=== PATIENT | male | born 1965 | race Caucasian/White ===

== ENCOUNTER → 2018-02-16 08:13 | Outpatient (CLI) | payer OTHER, SELFPAY ==
[2018-02-16 09:05] LABS: Absolute Lymphocyte Count 2.19 X10^3/ul (0.83-4.51); Basophil# 0.05 X10^3/uL; Basophil% 0.7 % (0-1); Eosinophil# 0.38 X10^3/uL; Eosinophils% 5.1 % (0-5); Hematocrit 43.1 % (40-54); Hemoglobin 15.2 g/dl (13.0-16.5); Lymphocyte # 2.19 X10^3/ul (4.0); Lymphocyte % 29.5 % (19-41); Mean Corp Hgb Conc 35.3 g/gl (32-36); Mean Corpuscular Hgb 29.2 pg (27.0-32.0); Mean Corpuscular Volume 82.7 fL (80-94); Mean Platelet Vol. 10.5 fl (6.2-12.0); Monocyte# 0.73 X10^3/uL; Monocyte% 9.8 % (0-10); Neutrophil # 4.04 X10^3/uL (2.7-7.7); Neutrophil % 54.4 % (47-70); Platelet Count 187 K/mm3 (150-450); RBC Distribution Width CV 13.2 % (11.6-14.6); RBC Distribution Width SD 39.8 fl (35.1-43.9); Red Blood Count 5.21 M/mm3 (4.6-6.2); White Blood Count 7.4 K/mm3 (4.4-11.0)
[2018-02-16 09:08] LABS: POSITIVE COUNT NO; POSITIVE DIFFERENTIAL NO; POSITIVE MORPHOLOGY NO
[2018-02-16 09:32] LABS: ALB/GLOB Ratio 1.2 RATIO (0.9-2.4); AST(SGOT) 29 U/L (15-37); Alanine Aminotransfer ALT/SGPT 59 U/L (16-61); Albumin, Serum 4.2 g/dL (3.2-5.0); Alkaline Phosphatase 65 U/L (45-117); Anion Gap 9 (5-15); BUN 15 mg/dL (7-18); BUN/Creat Ratio 11.9 RATIO (10-20); Calcium,Total 8.8 mg/dL (8.5-10.1); Chloride 105 mmol/L (98-107); Cholesterol 224 mg/dL (200); Creatinine, Serum 1.26 mg/dL (0.70-1.30); EST Glomerular Filtration Rate 64 mL/min (>60); Est Glom Filt Rate - Afr Amer 77 mL/min (>60); Globulin 3.5 g/dL (2.2-4.2); Glucose 116 mg/dL (74-106); Hemoglobin A1c 6.4 % (4.2-6.3); High Density Lipoprotein 38 mg/dL; PSA,Total - Annual Screen 3.79 ng/mL (0.00-4.00); Potassium 4.1 mmol/L (3.5-5.1); Protein, Total 7.7 g/dL (6.4-8.2); Sodium Level 140 mmol/L (136-145); Thyroid Stim Hormone (TSH) 1.49 uIU/mL (0.358-3.74); Triglycerides 344 mg/dL; Very Low Density Lipoprotein 69 mg/dL (5-40)
== END ==
PROVIDERS: Visit Provider Nurse Practitioner Family
DX: Z00.00 Encounter for general adult medical examination without abnormal findings (principal); Z13.0 Encounter for screening for diseases of the blood and blood-forming organs and certain disorders involving the immune mechanism; Z13.220 Encounter for screening for lipoid disorders; Z12.5 Encounter for screening for malignant neoplasm of prostate; Z13.1 Encounter for screening for diabetes mellitus; Z13.29 Encounter for screening for other suspected endocrine disorder
CPT/HCPCS: 36415; 80053; 80061; 83036; 84153; 84443; 85025; G0103

== ENCOUNTER 2018-06-08 07:26 | Day surgery (SDC) | payer OTHER, SELFPAY ==
[2018-06-08 07:46] VITALS: BP 123/80; PULSE 73; RESP 14; TEMP 36.2; O2SAT 98; BMI 32.3
--- NOTE | 2018-06-08 09:07 | H&P.OPEN ---
Past Medical/Surgical History - Planned Operation Planned Operative Procedure/s: COLONOSCOPY Date of Operative Procedure: 06/08/18 Permit Signed: Yes S.O.S: No Is This Patient Having a Total Joint: No - Previous Hospitalizations/Surgeries HX Hospitalizations: No HX of Surgeries: APPENDECTOMY. DEVIATED SEPTUM. HERNIA X2 Any Problems With Anesthesia: No You/Your Family Experience Fever (Hyperthermia) With Anes: No Cholinesterase deficiency: No - Cardiovascular Hx Chest Pain within Last 2 months: No Hx of Irregular Heartbeat and/or Afib: No Hx Heart Attack: No Hx Congestive Heart Failure: No Hx Rheumatic Fever: No Hx Hypertension: No Hx Internal Defibrillator: No Hx Pacemaker: No Hx Cardiac Catheterization: Yes - [facility] 2002 What facility was last heart cath performed: [facility] Date of last Heart Cath: 2002 Hx Cardiac Surgery/Stents/Etc.: No Hx Stress Test: Yes - AGE 25 HX Edema: No Hx Pain in Legs when Walking/Leg Cramps: No - Respiratory Chronic Cough: No HX of Shortness of Breath: No Hoarseness: No Hx Chronic Obstructive Pulmonary Disease (COPD): No Hx Asthma: No Hx Emphysema: No Hx Sleep Apnea: No Hx Oxygen Use at Home: No Hx Respiratory Tract Infection/Cold (presently): No Do You Snore Loudly (louder than talking or can be heard): Yes Do You Often Feel Tired/ Fatigued/ Sleepy Dring Daytime?: No Has Anyone Observed You Stop Breathing During Sleep?: No Result (for STOP score): Negative Hx Smoking: Yes Smoking Status: Former smoker - Gastrointestinal Hx Gastroesophageal Reflux: No Hx Gastrointestinal Disorders: No Hx Gastrointestinal Bleed: No Hx Ulcer: Yes - YR AGO Hx Hiatal Hernia: No Difficulty Chewing/Swallowing: No Recent Onset of Swallowing Problems: No Special diet followed at home: No Hx Unplanned Weight Loss of 20#: No HX Unplanned Weight Gain of 20#: No - Neurological Hx Seizures: No HX Syncope/Blackout Spells/Unconsciousness: No Hx CVA/Stroke: No Hx Transient Ischemic Attacks (TIA): No Hx Multiple Sclerosis: No Hx Parkinson's Disease: No Hx Head/Neck Injury: No Hx Headaches: No Hx Back Injury/Pain: No Recent Onset of Speech Difficulty: No Restless Legs: No Does patient have nerve stimulator: No - Blood Disorder Hx Leukemia: No Bleeding Tendencies: No Hx Deep Vein Thrombosis: No Hx High Cholesterol: No Blood Transmitted Disease: No Hx Hepatitis: No Hx Cirrhosis: No Hx Anemia: No Hx Blood Disorders: No - Genitourinary Hx Renal Disease: No Hx Dialysis: No - Musculoskeletal Hx Arthritis: No Hx Rheumatoid Arthritis: No Hx Gout: No Recent Onset of an Orthopedic Problem: No - Endocrine Hx Diabetes: No Thyroid Disease: No Hx Steroid Therapy: No - Psycho/Social Hx Substance Use: No Hx Alcohol Use: No Hx Anxiety: No Hx Depression: No Mental Illness: No Hx Dementia: No - Miscellaneous Hx Cancer: No Recent Exposure to Contagious Disease: No Active MRSA: No Hx of C-Diff: No Any Loose Teeth: No Allergies morphine Allergy (Verified 06/06/18 11:38) Itching - Discharge Is Pt Admitted From a Senior Care, or a [facility]pc: No Who Could Help: ED After D/C, Where Do you Plan to Go: Return Home - Physical Exam General: Alert, Oriented x3 Neck: No JVD Lungs: Normal air movement Cardiovascular: Regular rate, Regular Rhythm Abdomen: Soft, Non Tender, Non-Distended Vital Signs Temp Pulse Resp BP Pulse Ox 97.2 F L 73 14 123/80 H 98 06/08/18 07:46 06/08/18 07:46 06/08/18 07:46 06/08/18 07:46 06/08/18 07:46 Oxygen Delivery Method Room Air Weight: 231 lb 11.293 oz Body Mass Index (BMI) 32.3 Assessment/Plan All Active Problems (Last Updated 02/20/18 @ 08:19 by Teresa Land) History of pneumonia (Acute) Migraine (Acute) 53-year-old male for screening colonoscopy 1. Patient reports he had a colonoscopy as a young man but it is been over 20 years. The patient reports he has not had any blood in stool or abdominal pain. The patient has no family history of colon cancer. 2. I explained endoscopy in detail to the patient. I explained the risks including but not limited to stroke or heart attack with anesthesia, perforation of the GI tract, bleeding, infection. I explained that any of these could necessitate further emergency surgery. The patient understands and all questions were answered sufficiently. The patient wishes to proceed with procedure. Gage Schultz MD Pager: [facility] [address] [place] [address], [address] [place] [address] Office: Surgery Risks - Colonoscopy Risks Include but are not Limited To: Risks include but are not limited to: Bleeding, perforation requiring further surgery, inability to complete colonoscopy requiring barium enema.
[2018-06-08 09:08] VITALS: BP 121/58; BP 123/80; PULSE 74; RESP 16; TEMP 36.3; O2SAT 97
--- NOTE | 2018-06-08 09:08 | PCM.OPRPT ---
Problem List (1) Screening for colon cancer Status: Acute Report of Operation Date of Procedure: 06/08/18 Pre-Operative Diagnosis: Screening for colon cancer Post-Operative Diagnosis: Normal colonoscopy Surgery/Procedure Performed:: Colonoscopy Description of Procedure: The major risks and benefits associated with the procedure were explained to the patient in detail. The patient verbalized understanding and agreement with the same. The patient was brought to the endoscopy suite. After adequate sedation was achieved, the patient was placed in the left lateral decubitus position and a digital rectal exam was performed. This examination was within normal limits. A well-lubricated colonoscope was then inserted into the rectum and advanced under direct visualization to the level of the cecum. The bowel prep was good. The cecum was identified by both visual and anatomic landmarks. A photograph was taken of the end of the cecum. The scope was then fully withdrawn while examining the color, texture, anatomy and integrity of the mucosa from the cecum to the anal canal. The findings were consistent with normal colonic mucosa. Over 6 minutes were taken to examine the colonic mucosa. Upon reaching the rectum the scope was retroflexed to examine the distal rectal vault. The scope was then straightened and was completely retrieved upon exiting the anal canal and the procedure was terminated. The patient was then transferred to the recovery room in stable condition. Recommendations for follow up: 10 years
[2018-06-08 09:13] VITALS: BP 123/80; BP 129/92; PULSE 72; RESP 16; O2SAT 93
[2018-06-08 09:18] VITALS: BP 115/79; BP 123/80; PULSE 64; RESP 16; O2SAT 95
[2018-06-08 09:23] VITALS: BP 117/80; BP 123/80; PULSE 63; RESP 16; TEMP 36.3; O2SAT 97
[2018-06-08 09:36] VITALS: BP 123/80
== END 2018-06-08 09:37 | disposition home or self-care (01) ==
LOC: EN 07:27 → AC 07:28
PROVIDERS: Family Provider Internal Medicine; PCP Internal Medicine; Visit Provider Surgery
PROC: 0DJD8ZZ Inspection of Lower Intestinal Tract, Via Natural or Artificial Opening Endoscopic (ICD-10-PCS; CPT 45378; principal; 2018-06-08 08:25)
DX: Z12.11 Encounter for screening for malignant neoplasm of colon (principal); G43.909 Migraine, unspecified, not intractable, without status migrainosus; Z87.01 Personal history of pneumonia (recurrent); Z87.891 Personal history of nicotine dependence; Z79.899 Other long term (current) drug therapy
CPT/HCPCS: 45378; J7120

== ENCOUNTER → 2018-09-18 12:14 | Outpatient (CLI) | payer OTHER, SELFPAY ==
[2018-09-18 08:15] VITALS: BMI 33.2
--- NOTE | 2018-09-18 12:16 | US_ITS ---
STUDY: SCROTUM ULTRASOUND REASON FOR EXAM: Male, 53 years old. 3 week history of right testicular pain. TECHNIQUE: Ultrasound evaluation of the scrotum was performed with color Doppler and static perry-scale imaging. COMPARISON: None. FINDINGS: RIGHT TESTICLE INTRATESTICULAR: There is a normal size of the right testicle. The right testicle measures 4.1 cm x 2.9 cm x 2.4 cm. There is a homogenous echotexture. There is normal arterial and normal venous vascularity. There is no demonstrated right testicular mass or cyst. EXTRATESTICULAR: The epididymis is normal in size. The epididymis head measures 0.7 cm x 1.4 cm x 1.2 cm. There is normal vascularity of the epididymis. There is a well-defined cystic structure within the epididymis, without internal echoes, consistent with an epididymal cyst. This measures 4 mm x 3 mm x 3 mm. There is a small hydrocele. There is no demonstrated varicocele. There is no demonstrated extratesticular mass or cyst. LEFT TESTICLE INTRATESTICULAR: There is a normal size of the left testicle. The left testicle measures 3.7 cm x 2.5 cm x 2.0 cm. There is a homogenous echotexture. There is normal arterial and normal venous vascularity. There is no demonstrated left testicular mass or cyst. EXTRATESTICULAR: The epididymis is normal in size. The epididymis head measures 1 cm x 1.3 cm x 0.8 cm. There is normal vascularity of the epididymis. There is a well-defined cystic structure within the epididymis, without internal echoes, consistent with an epididymal cyst. This measures 3 mm x 3 mm x 3 mm. There is a small hydrocele. There is no demonstrated varicocele. There is no demonstrated extratesticular mass or cyst. US/Testicular with Arterial Flow IMPRESSION: Small bilateral epididymal cysts. Small bilateral hydroceles. Electronically Signed: Don Shay MD at 15:21 EST Tel [phone], Service support ,
--- OUTSIDE RECORDS SUMMARY | 2018-12-20 22:05 | XMS RPT_ITS ---
:1965 Author Organization OHIP Support Name Relationship Address Phone [employer] Unavailable [address] + [place] [address] BARBARA FUENTES Unavailable [address] + [place] [address] [employer] Unavailable [address] + [place] [address] BARBARA FUENTES Unavailable [address] + [place] [address] [employer] Unavailable [address] + [place] [address] BARBARA FUENTES Unavailable [address] + [place] [address] [employer] Unavailable [address] + [place] [address] ANIA FUENTESHLEEN Unavailable [address] + [place] [address] [employer] Unavailable [address] + [place] [address] BARBARA FUENTES Unavailable [address] + [place] [address] [employer]OWN [employer] Unavailable [address] + [place] [address] BARBARA FUENTES Unavailable [address] + [place] [address] [employer] Unavailable [address] + [place] [address] ANIA FUENTESHLEEN Unavailable [address] + [place] [address] [employer]OWN [employer] Unavailable [address] + [place] [address] ALFREDOANIABARBARA Unavailable [address] + [place] [address] [employer] Unavailable [address] + [place] [address] ALFREDO BARBARA Unavailable [address] + [place] [address] [employer] Unavailable [address] + [place] [address] ALFREDO BARBARA Unavailable [address] + [place] [address] Care Team Providers Name Role Phone Conrad Coy IRRIGATION EQUIPMENT INSTALLER-C Attending Unavailable Oleghe, Efewongbe Referring Unavailable Coy, Conrad IRRIGATION EQUIPMENT INSTALLER-C Attending Unavailable Coy, Conrad IRRIGATION EQUIPMENT INSTALLER-C Referring Unavailable Oleghe, Efewongbe Primary Care Unavailable Coy, Conrad IRRIGATION EQUIPMENT INSTALLER-C Attending Unavailable Coy, Conrad IRRIGATION EQUIPMENT INSTALLER-C Referring Unavailable Oleghe, Efewongbe Primary Care Unavailable Gage Schultz Attending Unavailable Oleghe, Efewongbe Referring Unavailable Coy, Conrad IRRIGATION EQUIPMENT INSTALLER-C Attending Unavailable Coy, Conrad IRRIGATION EQUIPMENT INSTALLER-C Referring Unavailable Primay Care Physicia, No Primary Care Unavailable Gage Schultz Attending Unavailable Gage Schultz Referring Unavailable Oleghe, Efewongbe Primary Care Unavailable Gage Schultz Attending Unavailable CalabrGage najera Referring Unavailable Oleghe, Efewongbe Primary Care Unavailable Gage Schultz Consulting Unavailable Nurse, Standard Attending Unavailable Oleghe, Efewongbe Referring Unavailable Oleghe, Efewongbe Attending Unavailable Oleghe, Efewongbe Referring Unavailable Oleghe, Efewongbe Primary Care Unavailable Oleghe, Efewongbe Attending Unavailable Oleghe, Efewongbe Referring Unavailable PROBLEMS PROBLEMS DATE TYPE CONDITION / CODE ATTENDING STATUS SOURCE 10/05/2018 Unknown G89.29 - Other Oleghe, Active Melvin chronic pain / [facility] G89.29(ICD-10) Hospital Repository 10/05/2018 Unknown M25.551 - Pain in Oleghe, Active Mamie right hip / [facility] M25.551(ICD-10) Hospital Repository 10/05/2018 Unknown L91.8 - Other Calabretta, Active Melvin hypertrophic Gage [facility] skin / Repository L91.8(ICD-10) 09/19/2018 Unknown M54.5 - Low back CoyConrad Active Melvin pain / IRRIGATION EQUIPMENT INSTALLER-C Community M54.5(ICD-10) Hospital Repository 09/18/2018 Unknown N50.811 - Right Coy, Conrad Active [facility] testicular pain / IRRIGATION EQUIPMENT INSTALLER-C Community N50.811(ICD-10) Hospital Repository 02/16/2018 Unknown Z13.0 - Encounter Coy, Conrad Active Mamie for screening for IRRIGATION EQUIPMENT INSTALLER-C [facility] blood and Repository blood-forming organs and certain disorders involving the immune mechanism / Z13.0(ICD-10) PROCEDURES PROCEDURES No Procedure Records FoundRESULTS RESULTS ABDOMEN/PELVIS WITHOUT Observed: 10/05/2018 Status: F Source: [place] CONT 12:56 PM [facility] REPOSITORY [facility] Imaging Services [address] [address] Abdomen/Pelvis without Cont MR#: [id number] Acct: [id number] Name: RADHA FUENTES Rep #: [id number] : 1965 M 53 From: Aakash Layne MD PCP: Naveen Melendez MD Status: REG CLI Study: Abdomen/Pelvis without Cont Date of Exam: 10/05/18 Exam# [id number] Ordering Dr: Naveen Melendez MD STUDY: CT ABDOMEN AND PELVIS WITHOUT CONTRAST REASON FOR EXAM: Male, 53 years old. Right groin pain for one month RADIATION DOSAGE (If Supplied By Facility): CTDIvol = ( 19.35 ) mGy, DLP = ( 1155.53 ) mGycm TECHNIQUE: Transaxial images were obtained from the dome of the diaphragm to the symphysis pubis with oral contrast, and without intravenous contrast. Sagittal and coronal images were reconstructed. Individualized dose optimization techniques were used for this CT. COMPARISON: None. FINDINGS: The visualized lung bases are unremarkable. The visualized portions of the heart are within normal limits. There is decreased attenuation of the liver consistent with steatosis. In the left hepatic lobe on image 40 (lateral to the falciform ligament) is a 2.0 cm rounded area of relative increased density that could represent focal sparing versus mass. Normal gallbladder and extrahepatic biliary system. Normal spleen. Normal pancreas. Normal bilateral adrenal glands. Normal right kidney. Normal left kidney. Normal visualized stomach. Normal small intestine. Normal colon. There is non-visualization of the appendix. Normal abdominal aorta. Normal inferior vena cava. Normal retroperitoneum. Normal urinary bladder. Mild soft tissue thickening deep to the right inguinal ring on axial image localized contrast in the upper left hemiscrotum on axial image 202 likely represents a varicocele. 146 is likely related to prior surgery (fibrosis) but no focal fluid collection or recurrent hernia is identified of either inguinal region. There are diffuse degenerative changes of the visualized lumbar spine. CT/Abdomen/Pelvis without Cont IMPRESSION: 1. No inguinal hernia or focal fluid collection. Probable postoperative fibrotic changes deep to the right inguinal ring. 2. Hepatic steatosis. Probable rounded fatty sparing in the left hepatic lobe, although mass cannot be excluded. Although ultrasound may further the pectus abnormality, may be obscured given hepatic steatosis. MRI would likely best define abnormality. 3. Left upper hemiscrotal varicocele. Electronically Signed: Aakash Layne MD at 7:56 EST , Service support , CC: Naveen Melendez MD Buggyman: Signed SURGERY VISIT REPORT Observed: 10/05/2018 Status: F Source: [place] 11:32 AM [facility] REPOSITORY [facility] [address] [place] [address]. [address] [place] [address] OFFICE VISIT Date of Service: 10/05/18 MR#: [id number] Acct: [id number] Name: RADHA FUENTES Rep #: [id number] : 1965 Provider: Gage Schultz MD Age/Sex: 53/M Location: [facility] Status: Signed Intake Vital Signs10/05/18 Body Mass Index (BMI) 33.2 10/05/18 Height 5 ft 11 in 10/05/18 Weight: 240 lb 3 oz 10/05/18 Body Mass Index (BMI) 33.5 10/05/18 Blood Pressure 131/90 H Intake Visit Reasons: Multiple Acquired Skin Tags Chief Complaint: skin tags Hvac Installation Technician Required: No Is patient in pain?: No Allergies morphine Allergy (Verified 10/05/18 10:51) Itching Medications acyclovir 400 mg tablet 400 mg PO TID PRN 02/20/18 [History Confirmed 10/05/18] calcium carbonat and lactate 200 mg calcium-vitamin D3 250 unit tablet 2 tab PO HS 02/20/18 [History Confirmed 10/05/18] cetirizine 10 mg capsule 10 mg PO QDAY 02/20/18 [History Confirmed 10/05/18] diphenhydramine 25 mg tablet 25 mg PO QHS PRN 02/20/18 [History Confirmed 10/05/18] multivitamin capsule 1 cap PO QAM 02/20/18 [History Confirmed 10/05/18] ibuprofen 600 mg tablet 600 mg PO BID #30 tab 09/26/18 [Rx Confirmed 10/05/18] [facility] Medical History History of pneumonia (Acute) Genital herpes (Chronic) Migraine (Acute) Seasonal allergies (Chronic) GERD (gastroesophageal reflux disease) (Acute) History of gastric ulcer (Acute) Surgical History History of colonoscopy (Acute 09/2018) H/O nasal septoplasty (Acute) History of appendectomy (Acute) History of hernia repair (Acute) History of vasectomy (Acute) Family History Father Hypertension Hyperlipemia Mother Arthritis Social History Smoking Status: Former smoker how long ago did patient quit smokin alcohol intake: never substance use type: does not use what type of physical activity do you participate in: walking frequency: daily HPI HPI HPI: RADHA FUENTES, is a 53 M who presents to the office today for skin tag excision. The patient has multiple skin tags in bilateral axillas as well as bilateral groins in the perineal area and one over his right eyelid. ROS General General: No weight change, appetite, fatigue, colon cancer, breast cancer or weakness HEENT HEENT: No difficulty swallowing, eye injury, eye surgery, swollen glands or hoarseness Endo Endocrine: No thyroid disease, diabetes mellitus, thyroid cancer, Hair loss, heat intolerance or cold intolerance Skin Skin: No rash or changing moles Additional Details: multiple skin tags Cardio Cardiovascular: No murmur, pacemaker, heart disease, atrial fibrillation, high blood pressure, heart attack, heart stent, palpitations, shortness of breat with exertion or chest pain Resp Respiratory: No shortness of breath, No sleep apnea, No cough, No COPD, No asthma, No emphysema, No wheezing Reymundo Hematologic: No blood thinners, No blood disorders, No bleeding, No anemia, No blood clots Neuro Neurologic: No weakness Exam Cardio Heart Sounds: no murmurs Office Procedures 61984 Skin Tags 1-15 Performed By: Procedure performed by: Gage Schultz Details: The patient was brought back to the procedure room. First the right eyelid was prepped with Betadine and the skin tag was elevated and anesthetized with lidocaine and taken with scissors. Pressure was held. Next in the right axilla 11 skin tags were identified, prepped, and anesthetized with lidocaine. Next these were all removed with Hyfrecator. Bandages were applied to each skin tag. Next the patient's left axilla was addressed. 9 skin tags were prepped, anesthetized and then remove the Hyfrecator. Next the patient's groin was inspected. The patient had a large skin tag in the left groin and the right groin. Each of these was prepped with lidocaine and removed with a Hyfrecator. The patient also had 2 in the perineal region and these were both taken in the same fashion. The patient is total amount of skin tags was 25. [place]. [address] Skin Tags >10 Performed By: Procedure performed by: Gage Schultz Details: Please see above documentation. Patient had total of 25 skin tags removed. Procedure Time Out Time Out Informed consent given: Yes Consent signed: Yes Time out checklist: patient, procedure, site marked/identified, positioning of patient, supplies available, allergies confirmed, team agrees on procedure Time out staff in room: Yes Time out verified: Yes Time out date: 10/05/18 Time out time: 11:00 Assessment AND Plan Problems 1. Multiple acquired skin tags L91.8 Plan Patient had multiple skin tags removed. 25 in total. Patient tolerated the procedure well. Follow-up as needed. Gage Schultz MD Pager: [facility] [address] [place] [address], [address] [place] [address] Office: Orders Orders: Coding Level of Care Code Attention Karen Diagnoses Multiple acquired skin tags L91.8 Comment 83383 [place] on code 16867. Total of 25 skin tags removed. 10/05/18 1132 <Electronically signed by Gage Schultz MD> Date Gage Schultz MD Cosigner Signature: Date (if applicable) CC: Naveen Melendez MD INTERNAL MEDICINE Observed: 09/27/2018 Status: F Source: [place] OFFICE VISIT 2:38 PM [facility] [address] [place] [address] OFFICE VISIT Date of Service: 09/26/18 MR#: [id number] Acct: [id number] Name: RADHA FUENTES Rep #: [id number] : 1965 Provider: Naveen Melendez MD Age/Sex: 53/M Location: [facility] Status: Signed Intake Vital Signs09/26/18 Body Mass Index (BMI) 33.2 09/26/18 Height 6 ft 09/26/18 Weight: 244 lb 09/26/18 Body Mass Index (BMI) 33.0 09/26/18 Blood Pressure 126/86 H Intake Visit Reasons: Hip pain Chief Complaint: FU Hip pain, skin tags Is patient in pain?: Yes (Rt hip) Pain scale (1-10): 8 (Can go up to an 8) Allergies morphine Allergy (Verified 09/26/18 16:46) Itching Medications acyclovir 400 mg tablet 400 mg PO TID PRN 02/20/18 [History Confirmed 09/26/18] calcium carbonat and lactate 200 mg calcium-vitamin D3 250 unit tablet 2 tab PO HS 02/20/18 [History Confirmed 09/26/18] cetirizine 10 mg capsule 10 mg PO QDAY 02/20/18 [History Confirmed 09/26/18] diphenhydramine 25 mg tablet 25 mg PO QHS PRN 02/20/18 [History Confirmed 09/26/18] multivitamin capsule 1 cap PO QAM 02/20/18 [History Confirmed 09/26/18] ibuprofen 600 mg tablet 600 mg PO BID #30 tab 09/26/18 [Rx Confirmed 09/26/18] PFSH Medical History History of pneumonia (Acute) Genital herpes (Chronic) Migraine (Acute) Seasonal allergies (Chronic) Surgical History H/O nasal septoplasty (Acute) History of appendectomy (Acute) History of hernia repair (Acute) History of vasectomy (Acute) Family History Father Hypertension Hyperlipemia Mother Arthritis Social History Smoking Status: Former smoker how long ago did patient quit smokin alcohol intake: never substance use type: does not use what type of physical activity do you participate in: walking frequency: daily HPI HPI Chief Complaint: FU Hip pain, skin tags Details: RADHA FUENTES, is a 53yo M who presents to the office today for follow-up of right hip and back pain. Right hip pain he says has been ongoing for about 8 months. Initial episode was after he had a popping sound while running with his daughter. Pain has pretty much lingered since then. Has now noted increased groin pain. Denies numbness or any radiation down his leg. Health a month ago, he also noted right-sided low back pain. Sudden onset. No significant/known precipitating or aggravating factor. Some relief with occasional ibuprofen. He however admits to sitting for very long periods. He also admits to not a very good posture while driving. Urinalysis done during his last visit was negative denies any problems/concerns of urination. ROS Const Constitutional: No chills, fatigue, fever(s), frequent falls, malaise, weakness, sleep problems or change in appetite Eyes Eyes: No blurry vision, change in vision, double vision, discharge or visual disturbances ENT ENT: No abnormal hearing, ear pain, ear pressure, tinnitus or dizziness/vertigo Resp Respiratory: No cough, shortness of breath or wheezing Cardio Cardiology: No chest pain at rest, chest pain with exertion, shortness of breath, dyspnea on exertion, generalized swelling, irregular heart rhythm, lightheadedness, orthopnea, fast heart rate or palpitations Gastro GI: No abdominal pain, change in bowel habits, constipation, diarrhea, nausea/dyspepsia or vomiting Genitourinary Male: No difficulty urinating, burning urination, painful urination, urinary incontinence, urinary frequency, urinary urgency, urinary hesitancy, urinary retention, blood in urine, Frequent nighttime urination/ nocturia, sexual problems, testicle lump or testicle pain Musc Musculoskeletal: Positive for joint pain (Rt Hip); no back pain, joint swelling, limited range of motion, numbness or tingling Skin Skin: Positive for other (Skin tags all over); no change in skin color, itching, rash or wounds Breast Breast: Positive for other (Skin tags all over); no breast lump or breast pain Neuro Neurology: No frequent falls, weakness, abnormal hearing, numbness, tingling, unsteady gait/balance, dizziness, loss of vision, memory loss or visual disturbances Psych Psychiatric: No memory loss, No anxiety, No change in appetite, No depression, No Thoughts of harming yourself/Others Endo Endocrine: No fatigue, heat intolerance, increased thirst/drinking, increased hunger or increased urination Aller/Imm Allergy/Immunologic: No wheezing, itchy eyes or seasonal allergy symptoms Reymundo/Lymp Hematologic/Lymphatic: No easy bleeding, easy bruising or enlarged lymph nodes Exam Const General: cooperative, no acute distress, well developed Orientation: alert, awake, oriented x3 HENMT Head: atraumatic, normocephalic, normal to inspection Ears: hearing grossly normal bilaterally Resp Effort AND Inspection: normal respiratory effort, able to speak in complete sentences Auscultation: Bilateral: Clear to Auscultation Cardio Rate: regular rate Rhythm: regular rhythm Heart Sounds: S1 normal, S2 normal GI Inspection: obesity Palpation: soft, no hepatosplenomegaly Musc Other: No significant reproducible pain with straight leg raise or right hip manipulations. Skin Other: Skin tags. Neuro General: alert, awake, oriented x3, moves all extremities, CN's II-XI intact bilaterally Extrem General: no clubbing, cyanosis or edema Psych Appearance: grossly normal Mood: congruent mood Affect: normal affect Assessment AND Plan 1. Chronic right hip pain M25.551; G89.29 Plan Ongoing for about 8 months. Initial episode was after running with his daughter. Now has noted worsening right groin pain. No significant numbness. No elicitation with maneuvers. Abdominal pelvic CAT scan ordered due to associated low back pain. Ibuprofen 600 mg twice daily for 2 weeks. Advised to take this with food. Follow-up with results. Orders Orders: 2. Back pain M54.9 Plan Ongoing for about a month. Appears musculoskeletal. Around the paraspinal area. NSAIDs as above. Follow-up with chiropractors also recommended. Adequate posturing discussed especially during driving. Follow-up at next visit 3. Multiple acquired skin tags L91.8 Plan Referred to Gen. surgery. This note was generated with [employer] dictation software. It may contain incorrect words, spelling, and punctuation that were not noted in checking the note before signing. Orders Referrals: Plan Detail Other Medications New: Coding Level of Care Code Off vis,est,level 4 Diagnoses Chronic right hip pain M25.551; G89.29 Back pain M54.9 Multiple acquired skin tags L91.8 09/27/18 1438 <Electronically signed by Naveen Melendez MD> Date Naveen Melendez MD Cosigner Signature: Date (if applicable) CC: URINALYSIS, COMPLETE Collected: 09/19/2018 Status: F Source: [place] 11:49 AM [facility] REPOSITORY Order Comment: How was Urine Obtained? TAB CUTTER TO SPECIFY TYPE CODE TESTS RESULT OUT OF RANGE REFERENCE UNITS LAB L400.3000 Yellow COLOR Normal Yellow LAB L400.3050 Clear Normal CLARITY Cloudy LAB L400.3200 Normal mg/dl Normal GLUCOSE, UR Normal LAB L400.3300 Negative mg/dL Normal BILIRUBIN URINE Negative LAB L400.3400 Negative mg/dl Normal KETONE UR Negative LAB L400.3465 1.002-1.030 Normal SP.GR. DIPSTX 1.025 LAB L400.3550 5.0 - 8.0 pH UR Normal 6.0 LAB L400.3600 Negative mg/dl PROT Normal DIPSTX Negative LAB L400.3700 Normal mg/dl Normal UROBILI Normal LAB L400.3750 Negative Normal NITRITE UR Negative LAB L400.3780 Negative /ul Normal OCCULT BLOOD-UR Negative LAB L400.3800 Negative /ul LEUK Normal ESTERASE Negative LAB L400.4050 0-5 /hpf WBC 0 Normal SEEN LAB L400.4100 0-5 /hpf Normal RBC-UA 0-5 SEEN LAB L400.4150 0-5 /hpf SQUAM Normal EPI 0-5 SEEN LAB L400.4300 None Seen /hpf 4+ Normal BACTERIA LAB L400.4350 <or=2+ /hpf 0 Normal MUCUS, URINE SEEN Performed By: #### L400.0001 #### [facility] [address] [place], [address] TESTICULAR WITH Observed: 09/18/2018 Status: F Source: [place] ARTERIAL FLOW 12:16 PM [facility] REPOSITORY [facility] Imaging Services [address] [place] [address] Testicular with Arterial Flow MR#: [id number] Acct: [id number] Name: RADHA FUENTES Rep #: [id number] : 1965 M 53 From: Don Shay MD PCP: Naveen Melendez MD Status: REG CLI Study: Testicular with Arterial Flow Date of Exam: 09/18/18 Exam# [id number] Ordering Dr: Conrad Coy IRRIGATION EQUIPMENT INSTALLER-C STUDY: SCROTUM ULTRASOUND REASON FOR EXAM: Male, 53 years old. 3 week history of right testicular pain. TECHNIQUE: Ultrasound evaluation of the scrotum was performed with color Doppler and static perry-scale imaging. COMPARISON: None. FINDINGS: RIGHT TESTICLE INTRATESTICULAR: There is a normal size of the right testicle. The right testicle measures 4.1 cm x 2.9 cm x 2.4 cm. There is a homogenous echotexture. There is normal arterial and normal venous vascularity. There is no demonstrated right testicular mass or cyst. EXTRATESTICULAR: The epididymis is normal in size. The epididymis head measures 0.7 cm x 1.4 cm x 1.2 cm. There is normal vascularity of the epididymis. There is a well-defined cystic structure within the epididymis, without internal echoes, consistent with an epididymal cyst. This measures 4 mm x 3 mm x 3 mm. There is a small hydrocele. There is no demonstrated varicocele. There is no demonstrated extratesticular mass or cyst. LEFT TESTICLE INTRATESTICULAR: There is a normal size of the left testicle. The left testicle measures 3.7 cm x 2.5 cm x 2.0 cm. There is a homogenous echotexture. There is normal arterial and normal venous vascularity. There is no demonstrated left testicular mass or cyst. EXTRATESTICULAR: The epididymis is normal in size. The epididymis head measures 1 cm x 1.3 cm x 0.8 cm. There is normal vascularity of the epididymis. There is a well-defined cystic structure within the epididymis, without internal echoes, consistent with an epididymal cyst. This measures 3 mm x 3 mm x 3 mm. There is a small hydrocele. There is no demonstrated varicocele. There is no demonstrated extratesticular mass or cyst. US/Testicular with Arterial Flow IMPRESSION: Small bilateral epididymal cysts. Small bilateral hydroceles. Electronically Signed: Don Shay MD at 15:21 EST Tel [phone], Service support , CC: Naveen Melendez MD; Conrad Coy NP Buggyman: Signed INTERNAL MEDICINE Observed: 09/18/2018 Status: F Source: [place] OFFICE VISIT 9:56 AM [facility] [address] [place] [address] OFFICE VISIT Date of Service: 09/18/18 MR#: [id number] Acct: [id number] Name: RADHA FUENTES Rep #: [id number] : 1965 Provider: Conrad Coy NP Age/Sex: 53/M Location: [facility] Status: Signed Intake Vital Signs09/18/18 Height 6 ft 09/18/18 Weight: 245 lb 09/18/18 Body Mass Index (BMI) 33.2 09/18/18 Blood Pressure 117/82 H Intake Visit Reasons: right side pain Chief Complaint: Rt side pain back Is patient in pain?: Yes (Rt side pain - back) Pain scale (1-10): 3 Allergies morphine Allergy (Verified 09/18/18 08:18) Itching Medications acyclovir 400 mg tablet 400 mg PO TID PRN 02/20/18 [History Confirmed 09/18/18] calcium carbonat and lactate 200 mg calcium-vitamin D3 250 unit tablet 2 tab PO HS 02/20/18 [History Confirmed 09/18/18] cetirizine 10 mg capsule 10 mg PO QDAY 02/20/18 [History Confirmed 09/18/18] diphenhydramine 25 mg tablet 25 mg PO QHS PRN 02/20/18 [History Confirmed 09/18/18] multivitamin capsule 1 cap PO QAM 02/20/18 [History Confirmed 09/18/18] cyclobenzaprine 10 mg tablet 5 - 10 mg PO TID PRN #30 tab 09/18/18 [Rx Confirmed 09/18/18] PFSH Medical History History of pneumonia (Acute) Genital herpes (Chronic) Migraine (Acute) Seasonal allergies (Chronic) Surgical History H/O nasal septoplasty (Acute) History of appendectomy (Acute) History of hernia repair (Acute) History of vasectomy (Acute) Family History Father Hypertension Hyperlipemia Mother Arthritis Social History Smoking Status: Former smoker how long ago did patient quit smokin alcohol intake: never substance use type: does not use what type of physical activity do you participate in: walking frequency: daily HPI HPI Chief Complaint: Rt side pain back Details: RADHA FUENTES, is a 53 M who presents to the office today for an acute visit of right-sided low back pain and intermittent dull right testicular pain times 3 weeks. He has a past medical history as listed above which is significant for bilateral inguinal surgical repair 15 years ago. The patient denies any recent injury, however he notes that approximately 3 weeks ago he noted an area in his right lower back significant for achy pain 7 out of 10 at its worse and a resting pain of 2 out of 10. The pain is intermittent and and the patient states that he occasionally has right testicular dull achy pain as well, he is unsure if this is related but it has been going on for approximately the same amount of time as well. He does note a prior history of bilateral inguinal hernia repair. He denies any aggravating factors. He does state that he takes lcbn-mhy-eosyxin Aleve which helps with his symptoms. He denies any blood in the urine denies any dysuria. He does state that a UA was done at work which was essentially normal. He denies any other aggravating or relieving factors. The patient otherwise denies any fever, chills, nausea, vomiting, shortness of breath, chest pain or pressure, palpitations, orthopnea, lower extremity edema, syncope or presyncopal episodes. ROS Const Constitutional: No chills, fatigue, fever(s), frequent falls, malaise, weakness, sleep problems or change in appetite Eyes Eyes: No blurry vision, change in vision, double vision, discharge or visual disturbances ENT ENT: No abnormal hearing, ear pain, ear pressure, tinnitus or dizziness/vertigo Resp Respiratory: No cough, shortness of breath or wheezing Cardio Cardiology: No chest pain at rest, chest pain with exertion, shortness of breath, dyspnea on exertion, generalized swelling, irregular heart rhythm, lightheadedness, orthopnea, fast heart rate or palpitations Gastro GI: No abdominal pain, change in bowel habits, constipation, diarrhea, nausea/dyspepsia or vomiting Genitourinary Male: Positive for testicle pain (Rt ) Musc Musculoskeletal: Positive for joint pain (into Rt hip/groin area), back pain (Rt side) and other; no joint swelling, limited range of motion, numbness or tingling Skin Skin: No change in skin color, itching, rash or wounds Breast Breast: No breast lump or breast pain Neuro Neurology: No frequent falls, weakness, visual disturbances, abnormal hearing, numbness, tingling, unsteady gait/balance, dizziness, loss of vision or memory loss Psych Psychiatric: No change in appetite, No memory loss, No anxiety, No depression, No Thoughts of harming yourself/Others Endo Endocrine: No fatigue, heat intolerance, increased thirst/drinking, increased hunger or increased urination Aller/Imm Allergy/Immunologic: No wheezing, itchy eyes or seasonal allergy symptoms Reymundo/Lymp Hematologic/Lymphatic: No easy bleeding, easy bruising or enlarged lymph nodes Exam Const General: cooperative, comfortable, no acute distress Nutritional Appearance: average body habitus, well nourished Orientation: alert, oriented x3 Limitations: mental status not altered Resp Effort AND Inspection: normal respiratory effort, able to speak in complete sentences, normal respiratory pattern, symmetric chest movement, no audible wheezes, no cough Auscultation: Bilateral: Clear to Auscultation Cardio Palpation: normal PMI Rate: regular rate Heart Sounds: S1 normal, S2 normal, normal S1 and S2, no click, no gallops, no murmurs, no rubs General: No CVA tenderness External: normal external exam Penis: normal penis Scrotum: scrotum normal Testes: no testicular tenderness, epididymides normal Musc Musculoskeletal: No joint tenderness, joint redness, joint warmth or decreased ROM Thoracic/Lumbar Spine: straight leg raise negative, thoracic and lumbar spine normal to inspection, no paraspinal tenderness, no lumbar spinal tenderness Other: Right low back muscular tenderness with deep palpation, pain is reproducible with palpation, range of motion is not limited due to pain. Skin General: no rashes or lesions noted, elasticity normal, turgor normal Lesions: no lesions Rashes: no rashes Neuro General: alert, awake, oriented x3, CN's II-XI intact bilaterally Speech: speech normal Gait: normal gait Motor: muscle tone normal throughout Extrem General: normal to inspection, normal gait, no edema, no pedal edema Psych Appearance: grossly normal Mental Status: mental status grossly normal Affect: normal affect Attitude: cooperative Thought Process: normal Assessment AND Plan 1. Right testicular pain N50.811 Plan At this time, I feel that this is unrelated to the right low back pain. Will check a UA however. Ultrasound of scrotum and contents ordered, no tenderness noted on exam. No obvious abnormalities on exam as well. Discussed red flag symptoms requiring urgent medical attention. Patient verbalized understanding. Did discuss conservative management to utilize in the meantime as well such as utilizing scrotal support mechanisms. Orders Orders: 2. Acute right-sided low back pain without sciatica M54.5 Plan Most likely musculoskeletal at this time, pain is reproducible on exam. Given the duration of symptoms, patient may utilize heat or ice. May continue with the use of zjot-bsx-fnqsqhm analgesics. Muscle relaxant Flexeril given the patient as well. Discussed potential side effects of medication and how to properly take it. Patient verbalized understanding. Patient to follow-up previously scheduled in 2 weeks or sooner if needed. Orders Orders: Plan Detail Other Medications New: Coding Level of Care Code Off vis,est,level 3 Diagnoses Right testicular pain N50.811 Acute right-sided low back pain without sciatica M54.5 Chronicity: acute Sciatica presence: without sciatica 09/18/18 0956 <Electronically signed by Conrad IVAN> Date Conrad IVAN Cosigner Signature: Date (if applicable) CC: OPERATIVE REPORT Observed: 06/08/2018 Status: F Source: [place] 9:09 AM [facility] REPOSITORY [facility] Medical Records Department [address] [place] [address] Operative Report 06/08/18 0908 MR#: [id number] Acct: [id number] Name: RADHA FUENTES Rep #: [id number] : 1965 53 From: Gage Schultz MD PCP: Naveen Melendez MD Status: REG SD Y Location: [place] [address] Problem List (1) Screening for colon cancer Status: Acute Report of Operation Date of Procedure: 06/08/18 Pre-Operative Diagnosis: Screening for colon cancer Post-Operative Diagnosis: Normal colonoscopy Surgery/Procedure Performed:: Colonoscopy Description of Procedure: The major risks and benefits associated with the procedure were explained to the patient in detail. The patient verbalized understanding and agreement with the same. The patient was brought to the endoscopy suite. After adequate sedation was achieved, the patient was placed in the left lateral decubitus position and a digital rectal exam was performed. This examination was within normal limits. A well- lubricated colonoscope was then inserted into the rectum and advanced under direct visualization to the level of the cecum. The bowel prep was good. The cecum was identified by both visual and anatomic landmarks. A photograph was taken of the end of the cecum. The scope was then fully withdrawn while examining the color, texture, anatomy and integrity of the mucosa from the cecum to the anal canal. The findings were consistent with normal colonic mucosa. Over 6 minutes were taken to examine the colonic mucosa. Upon reaching the rectum the scope was retroflexed to examine the distal rectal vault. The scope was then straightened and was completely retrieved upon exiting the anal canal and the procedure was terminated. The patient was then transferred to the recovery room in stable condition. Recommendations for follow up: 10 years 06/08/18 09 <Electronically signed by Gage Schultz MD> Date Gage Schultz MD CC: Gage Schultz MD; Naveen Melendez MD Signed HISTORY AND PHYSICAL Observed: 06/08/2018 Status: F Source: [place]AM 9:08 AM [facility] REPOSITORY [facility] Medical Records Department [address] [place] [address] History and Physical 06/08/18 0907 MR#: [id number] Acct: [id number] Name: RADHA FUENTES Rep #: [id number] : 1965 53 From: Gage Schultz MD PCP: Naveen Melendez MD Status: REG SD Y Location: [place] [address] Past Medical/Surgical History - Planned Operation Planned Operative Procedure/s: COLONOSCOPY Date of Operative Procedure: 06/08/18 Permit Signed: Yes S.O.S: No Is This Patient Having a Total Joint: No - Previous Hospitalizations/Surgeries HX Hospitalizations: No HX of Surgeries: APPENDECTOMY. DEVIATED SEPTUM. HERNIA X2 Any Problems With Anesthesia: No You/Your Family Experience Fever (Hyperthermia) With Anes: No Cholinesterase deficiency: No - Cardiovascular Hx Chest Pain within Last 2 months: No Hx of Irregular Heartbeat and/or Afib: No Hx Heart Attack: No Hx Congestive Heart Failure: No Hx Rheumatic Fever: No Hx Hypertension: No Hx Internal Defibrillator: No Hx Pacemaker: No Hx Cardiac Catheterization: Yes - [facility] 2002 What facility was last heart cath performed: [facility] Date of last Heart Cath: 2002 Hx Cardiac Surgery/Stents/Etc.: No Hx Stress Test: Yes - AGE 25 HX Edema: No Hx Pain in Legs when Walking/Leg Cramps: No - Respiratory Chronic Cough: No HX of Shortness of Breath: No Hoarseness: No Hx Chronic Obstructive Pulmonary Disease (COPD): No Hx Asthma: No Hx Emphysema: No Hx Sleep Apnea: No Hx Oxygen Use at Home: No Hx Respiratory Tract Infection/Cold (presently): No Do You Snore Loudly (louder than talking or can be heard): Yes Do You Often Feel Tired/ Fatigued/ Sleepy Dring Daytime?: No Has Anyone Observed You Stop Breathing During Sleep?: No Result (for STOP score): Negative Hx Smoking: Yes Smoking Status: Former smoker - Gastrointestinal Hx Gastroesophageal Reflux: No Hx Gastrointestinal Disorders: No Hx Gastrointestinal Bleed: No Hx Ulcer: Yes - YR AGO Hx Hiatal Hernia: No Difficulty Chewing/Swallowing: No Recent Onset of Swallowing Problems: No Special diet followed at home: No Hx Unplanned Weight Loss of 20#: No HX Unplanned Weight Gain of 20#: No - Neurological Hx Seizures: No HX Syncope/Blackout Spells/Unconsciousness: No Hx CVA/Stroke: No Hx Transient Ischemic Attacks (TIA): No Hx Multiple Sclerosis: No Hx Parkinson's Disease: No Hx Head/Neck Injury: No Hx Headaches: No Hx Back Injury/Pain: No Recent Onset of Speech Difficulty: No Restless Legs: No Does patient have nerve stimulator: No - Blood Disorder Hx Leukemia: No Bleeding Tendencies: No Hx Deep Vein Thrombosis: No Hx High Cholesterol: No Blood Transmitted Disease: No Hx Hepatitis: No Hx Cirrhosis: No Hx Anemia: No Hx Blood Disorders: No - Genitourinary Hx Renal Disease: No Hx Dialysis: No - Musculoskeletal Hx Arthritis: No Hx Rheumatoid Arthritis: No Hx Gout: No Recent Onset of an Orthopedic Problem: No - Endocrine Hx Diabetes: No Thyroid Disease: No Hx Steroid Therapy: No - Psycho/Social Hx Substance Use: No Hx Alcohol Use: No Hx Anxiety: No Hx Depression: No Mental Illness: No Hx Dementia: No - Miscellaneous Hx Cancer: No Recent Exposure to Contagious Disease: No Active MRSA: No Hx of C-Diff: No Any Loose Teeth: No Allergies morphine Allergy (Verified 06/06/18 11:38) Itching - Discharge Is Pt Admitted From a [facility], or a [facility]: No Who Could Help: ED After D/C, Where Do you Plan to Go: Return Home - Physical Exam General: Alert, Oriented x3 Neck: No JVD Lungs: Normal air movement Cardiovascular: Regular rate, Regular Rhythm Abdomen: Soft, Non Tender, Non-Distended Vital Signs Temp Pulse Resp BP Pulse Ox 97.2 F L 73 14 123/80 H 98 06/08/18 07:46 06/08/18 07:46 06/08/18 07:46 06/08/18 07:46 06/08/18 07:46 Oxygen Delivery Method Room Air Weight: 231 lb 11.293 oz Body Mass Index (BMI) 32.3 Assessment/Plan All Active Problems (Last Updated 02/20/18 @ 08:19 by Teresa Land) History of pneumonia (Acute) Migraine (Acute) 53-year-old male for screening colonoscopy 1. Patient reports he had a colonoscopy as a young man but it is been over 20 years. The patient reports he has not had any blood in stool or abdominal pain. The patient has no family history of colon cancer. 2. I explained endoscopy in detail to the patient. I explained the risks including but not limited to stroke or heart attack with anesthesia, perforation of the GI tract, bleeding, infection. I explained that any of these could necessitate further emergency surgery. The patient understands and all questions were answered sufficiently. The patient wishes to proceed with procedure. Gage Schultz MD Pager: [facility] [address] [place] [address], [address] [place] [address] Office: Surgery Risks - Colonoscopy Risks Include but are not Limited To: Risks include but are not limited to: Bleeding, perforation requiring further surgery, inability to complete colonoscopy requiring barium enema. 06/08/18 0908 <Electronically signed by Gage Schultz MD> Date Gage Schultz MD Cosigner Signature: Date (if applicable) CC: Gage Schultz MD; Naveen Melendez MD Signed CBC W/DIFF, AUTOMATED Collected: 02/16/2018 Status: F Source: [place] 8:22 AM [facility] REPOSITORY Order Comment: Order Date: 07/21/17 Order Info: [id number] - *CBC with Differential Comments: Reason: TYPE CODE TESTS RESULT OUT OF RANGE REFERENCE UNITS LAB L100.1000 4.4-11.0 K/mm3 Normal WBC 7.4 LAB L100.1200 4.6-6.2 M/mm3 Normal RBC 5.21 LAB L100.1300 13.0-16.5 g/dl Normal HGB 15.2 LAB L100.1400 40-54 % Normal HCT 43.1 LAB L100.1500 80-94 fL Normal MCV 82.7 LAB L100.1600 27.0-32.0 pg Normal MCH 29.2 LAB L100.1700 32-36 g/gl Normal MCHC 35.3 LAB L100.1810 11.6-14.6 % Normal RDW CV 13.2 LAB L100.1820 35.1-43.9 fl Normal RDW SD 39.8 LAB L100.1900 150-450 K/mm3 Normal PLT 187 LAB L100.2000 6.2-12.0 fl Normal MPV 10.5 LAB L100.2100 47-70 % Normal NEUT% 54.4 LAB L100.2200 19-41 % Normal LY% 29.5 LAB L100.2300 0-10 % Normal MONO% 9.8 LAB L100.2400 0-5 % High EO% 5.1 LAB L100.2500 0-1 % Normal BASO% 0.7 LAB L100.2550 0.0-0.9 % Normal IM GRAN % 0.500 Result Comment: IG% - Immature Granulocytes (promyelocytes, myelocytes and metamyelocytes) > 1% indicates that a LEFT SHIFT is Present. LAB L100.2620 2.0-7.7 X10 3/uL Normal Absolute Neut 4.0 LAB L100.2720 0.83-4.51 X10 3/ul Normal Absolute Lymph 2.19 Performed By: #### L100.0100 #### [facility] [place], [address] COMPREHENSIVE METABOLIC Collected: 02/16/2018 Status: F Source: [facility] 8:22 AM [facility] REPOSITORY Order Comment: Order Date: 07/21/17 Order Info: 0786-1 - *CMP Complete Metabolic Panel Order Info: 27214-1 - *Lipid Profile Comments: Fasting 12 hours, may have water. Order Info: [id number] - *TSH Comments: Reason: Order Info: 2857-1 - *PSA (Prostate Specific Antigen) TYPE CODE TESTS RESULT OUT OF RANGE REFERENCE UNITS LAB L501.0100 74-106 mg/dL High GLU 116 Result Comment: Fasting Glucose result from 100 to 125 mg/dL suggests IMPAIRED HOMEOSTASIS per A.D.A. criteria. Please note revised GLUCOSE reference range effective 2017. LAB L501.1000 7-18 mg/dL Normal BUN 15 LAB L501.1100 0.70-1.30 mg/dL Normal CREAT,SERUM 1.26 Result Comment: The validity of the calculated GFR AND GFRAA in patients over 70 years has not been determined. Clinical correlation is essential. LAB L501.1110 >60 mL/min Normal EST GFR 64 Result Comment: Non- GFR Calc LAB L501.1115 >60 mL/min Normal EST GFR - AA 77 Result Comment: GFR Calc LAB L501.1300 10-20 RATIO Normal BUN/CRE 11.9 LAB L501.1500 6.4-8.2 g/dL T Normal PROT 7.7 LAB L501.1800 3.2-5.0 g/dL Normal ALB 4.2 LAB L501.1950 2.2-4.2 g/dL Normal GLOB 3.5 LAB L501.2000 0.9-2.4 RATIO Normal A/G 1.2 LAB L501.2200 8.5-10.1 mg/dL CA Normal 8.8 LAB L501.4100 15-37 U/L Normal AST 29 LAB L501.4305 45-117 U/L Normal ALK P 65 LAB L501.4405 16-61 U/L Normal ALT 59 LAB L501.4600 0.20-1.00 mg/dL T Normal BILI 0.60 LAB L501.5300 136-145 mmol/L NA Normal 140 LAB L501.5600 3.5-5.1 mmol/L K Normal 4.1 LAB L501.5900 98-107 mmol/L CL Normal 105 LAB L501.6100 21.0-32.0 mmol/L Normal CO2 26.0 LAB L501.6200 5-15 Normal GAP 9 Performed By: #### L500.4050 #### [facility] [address] [place], [address] LIPID PROFILE Collected: 02/16/2018 Status: F Source: [place] 8:22 AM [facility] REPOSITORY Order Comment: Order Date: 07/21/17 Order Info: 0786-1 - *CMP Complete Metabolic Panel Order Info: 20005-6 - *Lipid Profile Comments: Fasting 12 hours, may have water. Order Info: 3016-3 - *TSH Comments: Reason: Order Info: 2857-1 - *PSA (Prostate Specific Antigen) TYPE CODE TESTS RESULT OUT OF RANGE REFERENCE UNITS LAB L501.4900 200 mg/dL High CHOL 224 Result Comment: <200 mg/dL Desirable 200-240 mg/dL Borderline >240 mg/dL High Risk LAB L501.5000 mg/dL High TRIG 344 Result Comment: The drugs N-Acetylcysteine and Metamizole may falsely depress this assay. Serum Triglycerides Reference Interval Normal <150 mg/dL Borderline high 150 - 199 mg/dL High 200 - 499 mg/dL Very High > or = 500 mg/dL LAB L501.6400 mg/dL Low HDL 38 Result Comment: The drugs N-Acetylcysteine and Metamizole may falsely depress this assay. Reference Range HDL <40 mg/dL Low HDL Cholesterol HDL >or= 60 mg/dL High HDL Cholesterol LAB L501.6500 0-130 mg/dL Normal LDL 117 LAB L501.6600 5-40 mg/dL High VLDL 69 Performed By: #### L500.4100 #### [facility] [address] [place], [address] THYROID STIM HORMONE Collected: 02/16/2018 Status: F Source: [place] (TSH) 8:22 AM [facility] REPOSITORY Order Comment: Order Date: 07/21/17 Order Info: 0786-1 - *CMP Complete Metabolic Panel Order Info: [id number] - *Lipid Profile Comments: Fasting 12 hours, may have water. Order Info: 3016-3 - *TSH Comments: Reason: Order Info: 2857-1 - *PSA (Prostate Specific Antigen) TYPE CODE TESTS RESULT OUT OF RANGE REFERENCE UNITS LAB L501.9520 0.358-3.74 uIU/mL Normal TSH 1.49 Performed By: #### L501.9520 #### [facility] [address] [place], [address] PSA,TOTAL - ANNUAL Collected: 02/16/2018 Status: F Source: [place] SCREEN 8:22 AM [facility] REPOSITORY Order Comment: Order Date: 07/21/17 Order Info: 0786-1 - *CMP Complete Metabolic Panel Order Info: [id number] - *Lipid Profile Comments: Fasting 12 hours, may have water. Order Info: 3016-3 - *TSH Comments: Reason: Order Info: 2857-1 - *PSA (Prostate Specific Antigen) TYPE CODE TESTS RESULT OUT OF RANGE REFERENCE UNITS LAB L501.9910 0.00-4.00 ng/mL Normal PSA,TOT 3.79 SCREEN Result Comment: This test was performed using the TPSA assay method for the [employer] chemistry system. Values obtained with different assay methods cannot be used interchangably. When changing PSA assays in the course of monitoring a patient, additional sequential testing should be carried out to confirm baseline values. Performed By: #### L501.9910 #### [facility] [address] [place], [address] HEMOGLOBIN A1C Collected: 02/16/2018 Status: F Source: [place] 8:22 AM [facility] REPOSITORY Order Comment: Order Date: 07/21/17 Order Info: 4548-4 - *HgA1C TYPE CODE TESTS RESULT OUT OF RANGE REFERENCE UNITS LAB L501.9985 4.2-6.3 % High HGB A1C 6.4 Performed By: #### L501.9985 #### [facility] [address] [facility] [place], [address] ALLERGIES ALLERGIES DATE TYPE / CODE NAME / CODE REACTION SEVERITY SOURCE 10/05/2018 Drug morphine/F00 Itching Unknown [facility] Allergy/4160 [id number]([facility] [address](SNOMED RM) Repository CT) ENCOUNTERS ENCOUNTERS ADMIT/DISCHARGE ACCOUNT ADMITTING ENCOUNTER LOCATION SOURCE NUMBER CLASS 10/05/2018 [id number] Ambulatory [place] 3 [facility] ing:CT Repository 10/05/2018/ [id number] Ambulatory BMSBuilding:B [place] 9 1 MS.A [facility] Repository 09/26/2018/ [id number] Ambulatory BMSBuilding:B [place] 8 6 MS.[facility] Repository 09/19/2018 [id number] Ambulatory [place] 9 [facility] ing:LABSPEC Repository 09/18/2018 [id number] Ambulatory [place] 7 [facility] ing:US Repository 09/18/2018/ [id number] Ambulatory BMSBuilding:B [place] 8 8 MS.[facility] Repository 06/08/2018/ [id number] Ambulatory [place] 8 9 [facility] ing:ENRoom: Repository [facility] 06/08/2018 [id number] Ambulatory BMSBuilding:B [place] 4 MS.[facility] Repository 03/27/2018/ [id number] Ambulatory BMSBuilding:B [place] 8 4 MS.[facility] Repository 02/16/2018 [id number] Ambulatory [place] 6 [facility] ing:LAB Repository PAYERS PAYERS ENCOUNTER GUARANTOR PAYER SUBSCRIBER SOURCE 10/05/2018 RADHA S Primary RADHA S [place] [id number] [place] Insurance:AETNAPolicy SUGGSDOB: Community RUN Number: [id number] [id number] Repository , [place] [address]Icp: Date:8938-83-31HS [address] [place] [address] [place] () [phone]: 10/05/2018 Secondary NOT GIVENUNK [place] Insurance:SELF PAY [facility] Number: Effective Repository Date:2018-09-27 10/05/2018 RADHA S Primary RADHA S [place] [id number] [place] Insurance:AETNAPolicy SUGGSDOB: Community RUN Number: [id number] Health [facility] [id number] Repository , [place] [address]Xzr: Date:8637-07-00MH [address] [place] [address] [place] () [phone]: 10/05/2018 Secondary NOT GIVENUNK [place] Insurance:SELF PAY [facility] Number: Effective Repository Date:2018-10-04 09/26/2018 RADHA S Primary RADHA S [place] [id number] DE[place] Insurance:AETNAPolicy SUGGSDOB: Community RUN Number: [id number] Health [facility] [id number] Repository , [place] [address]Kpm: Date:9294-08-13MI [address] [place] () [phone]: 09/26/2018 Secondary NOT GIVENUNK [place] Insurance:SELF PAY [facility] Number: Effective Repository Date:2018-09-24 09/19/2018 RADHA S Primary RADHA S [place] [id number] [place] Insurance:AETNAPolicy SUGGSDOB: Community RUN Number: [id number] Health [facility] [id number] Repository , [place] [address]Lfo: Date:1878-40-63GN [address] [place] () [phone]: 09/19/2018 Secondary NOT GIVENUNK [place] Insurance:SELF PAY [facility] Number: Effective Repository Date:2018-09-19 09/18/2018 RADHA S Primary RADHA S [place] [id number] DEER Insurance:AETNAPolicy SUGGSDOB: Community RUN Number: [id number] Health [facility] [id number] Repository , [place] [address]Xqv: Date:4938-60-33FU [address] [place] () [phone]: 09/18/2018 Secondary NOT GIVENUNK [place] Insurance:SELF PAY [facility] Number: Effective Repository Date:2018-09-18 09/18/2018 RADHA S Primary RADHA S [place] [id number] [place] Insurance:AETNAPolicy SUGGSDOB: Community RUN Number: [id number] Health [facility] [id number] Repository , [place] [address]Bzv: Date:4965-17-72CH [address] [place] () [phone]: 09/18/2018 Secondary NOT GIVENUNK [place] Insurance:SELF PAY [facility] Number: Effective Repository Date:2018-09-17 06/08/2018 RADHA S Primary RADHA S [place] [id number] [place] Insurance:AETNAPolicy SUGGSDOB: Community RUN Number: [id number] Health [facility] [id number] Repository , [place] [address]Rmz: Date:8115-12-27LM [address] [place] () [phone]: 06/08/2018 Secondary NOT GIVENUNK [place] Insurance:SELF [facility] Effective Repository Date:2018-03-27 06/08/2018 RADHA S Primary RADHA S [place] [id number] [place] Insurance:AETNAPolicy SUGGSDOB: Community RUN Number: [id number] Health [facility] [id number] Repository , [place] [address]Wuh: Date:1360-46-98MY [id number] AMITA JOHNSON () [address]YE: 06/08/2018 Secondary NOT GIVENUNK Mamie Insurance:SELF PAY [facility]: Effective Repository Date:2018-06-08 03/27/2018 RADHA [id number] Primary RADHA SUGGSDOB: Melvin [address] Insurance:AETNAPolicy [id number] [facility] Number: [place], [place] [address]Tgb: [id number] Repository Date:6507-29-88NS [address] () [id number] AMITA JOHNSON [address]JW: 03/27/2018 Secondary NOT GIVENUNK Mamie Insurance:SELF PAY [facility] Effective Repository Date:2018-03-27 02/16/2018 RADHA [id number] Primary RADHA SUGGSDOB: Mamie [address] Insurance:AETNAPolicy [id number] [facility] Number: [facility] , [place] [address]Fig: [id number] Repository Date:4324-68-37TD BOX () [id number] AMITA JOHNSON [address]MQ: 02/16/2018 Secondary NOT GIVENUNK Mamie Insurance:SELF PAY [facility] Number: Effective Repository Date:2018-02-16
== END ==
PROVIDERS: Family Provider Internal Medicine; PCP Internal Medicine; Referring Provider Nurse Practitioner Family; Visit Provider Nurse Practitioner Family
DX: N50.811 Right testicular pain (principal)
CPT/HCPCS: 76870; 93976

== ENCOUNTER → 2018-09-19 11:32 | Outpatient (CLI) | payer OTHER, SELFPAY ==
[2018-09-18 08:15] VITALS: BMI 33.2
[2018-09-19 11:50] LABS: Mucous, Urine 0 SEEN /hpf (<or=2+); White Blood Cells 0 SEEN /hpf (0-5)
[2018-09-19 12:00] LABS: Color, Urine Yellow (Yellow); Glucose, Dipstick Normal (Normal); Ketone-Dipstick Negative (Negative); Leukocyte Esterase-Dipstick Negative /ul (Negative); Nitrite-Dipstick Negative (Negative); Occult Blood-Urine Negative /ul (Negative); Protein-Dipstick Negative (Negative); Specific Gravity, Urine 1.025 (1.002-1.030); Urine Bilirubin Dipstick Negative (Negative); Urine Clarity Cloudy (Clear); Urine Urobilinogen Normal (Normal)
[2018-09-19 12:08] LABS: Bacteria 4+ /hpf (None Seen); Red Blood Cells-Urine 0-5 SEEN /hpf (0-5); Squamous Epithelial Cells - UA 0-5 SEEN /hpf (0-5)
--- OUTSIDE RECORDS SUMMARY | 2018-12-21 15:42 | XMS RPT_ITS ---
:1965 Author Organization OHIP Support Name Relationship Address Phone CROWN BATTERY Unavailable [address] + [place] [address] BARBARA FUENTES Unavailable [address] + [place] [address] CROWN BATTERY Unavailable [address] + [place] [address] BARBARA FUENTES Unavailable [address] + [place] [address] CROWN BATTERY Unavailable [address] + [place] [address] BARBARA FUENTES Unavailable [address] + [place] [address] CROWN BATTERY Unavailable [address] + [facility] [place] [address] ANIA FUENTESHLEEN Unavailable [address] + [place] [address] CROWN BATTERY Unavailable [address] + [place] [address] BARBARA FUENTES Unavailable [address] + [place] [address] CROWN BATTERY Unavailable [address] + [place] [address] BARBARA FUENTES Unavailable [address] + [place] [address] CROWN BATTERY Unavailable [address] + [place] [address] ANIA FUENTESHLEEN Unavailable [address] + [place] [address] CROWN BATTERY Unavailable [address] + [place] [address] ALFREDO BARBRAA Unavailable [address] + [place] [address] CROWN BATTERY Unavailable [address] + [place] [address] ALFREDO BARBARA Unavailable [address] + [place] [address] CROWN BATTERY Unavailable [address] + [place] [address] ALFREDO BARBARA Unavailable [address] + [place] [address] CROWN BATTERY Unavailable [address] + [place] [address] ALFREDO BARBARA Unavailable [address] + [place] [address] Care Team Providers Name Role Phone Conrad Coy DYNO TECHNICIAN-C Attending Unavailable Oleghe, Efewongbe Referring Unavailable OcyConrad DYNO TECHNICIAN-C Attending Unavailable CoyConrad DYNO TECHNICIAN-C Referring Unavailable Oleghe, Efewongbe Primary Care Unavailable Conrad Coy DYNO TECHNICIAN-C Attending Unavailable CoyConrad DYNO TECHNICIAN-C Referring Unavailable Oleghe, Efewongbe Primary Care Unavailable Oleghe, Efewongbe Attending Unavailable Oleghe, Efewongbe Referring Unavailable Oleghe, Efewongbe Attending Unavailable Oleghe, Efewongbe Referring Unavailable Oleghe, Efewongbe Primary Care Unavailable Gage Schultz Attending Unavailable Oleghe, Efewongbe Referring Unavailable CoyConrad DYNO TECHNICIAN-C Attending Unavailable CoyConrad DYNO TECHNICIAN-C Referring Unavailable Primay Care Physicia, No Primary Care Unavailable Nurse, Standard Attending Unavailable Oleghe, Efewongbe Referring Unavailable Gage Schultz Attending Unavailable Gage Schultz Referring Unavailable Oleghe, Efewongbe Primary Care Unavailable Gage Schultz Attending Unavailable Gage Schultz Referring Unavailable Oleghe, Efewongbe Primary Care Unavailable Gage Schultz Consulting Unavailable Oleghe, Efewongbe Attending Unavailable Oleghe, Efewongbe Referring Unavailable PROBLEMS PROBLEMS DATE TYPE CONDITION / CODE ATTENDING STATUS SOURCE 10/26/2018 Unknown R93.2 - Abnormal Oletricee, Active [place] findings on [facility] diagnostic imaging Hospital of liver and Repository biliary tract / R93.2(ICD-10) 10/05/2018 Unknown M25.551 - Pain in Olebetty, Active [place] right hip / [facility] M25.551(ICD-10) Hospital Repository 10/05/2018 Unknown G89.29 - Other Olebetty, Active [place] chronic pain / [facility] G89.29(ICD-10) Hospital Repository 10/05/2018 Unknown L91.8 - Other [place]ta, Active [place] hypertrophic [facility] disorders of the [facility] skin / Repository L91.8(ICD-10) 09/19/2018 Unknown M54.5 - Low back Coy, Conrad Active [place] pain / DYNO TECHNICIAN-C Community M54.5(ICD-10) Hospital Repository 09/18/2018 Unknown N50.811 - Right Coy, Conrad Active [place] testicular pain / DYNO TECHNICIAN-C [facility] N50.811(ICD-10) Hospital Repository 02/16/2018 Unknown Z13.0 - Encounter Coy, Conrad Active [place] for screening for DYNO TECHNICIAN-C Community diseases of the Hospital blood and Repository blood-forming organs and certain disorders involving the immune mechanism / Z13.0(ICD-10) PROCEDURES PROCEDURES No Procedure Records FoundRESULTS RESULTS ABDOMEN/PELVIS WITHOUT Observed: 10/05/2018 Status: F Source: [place] CONT 12:56 PM [facility] REPOSITORY [facility] Imaging Services [address] [place] [address] Abdomen/Pelvis without Cont MR#: [id number] Acct: [id number] Name: RADHA FUENTES Rep #: [id number] : 1965 M 53 From: Aakash Layne MD PCP: Naveen Melendez MD Status: REG CLI Study: Abdomen/Pelvis without Cont Date of Exam: 10/05/18 Exam# [id number] Ordering Dr: Naveen Melendez MD STUDY: CT [...] Service support , CC: Naveen Melendez MD Visual Basic Developer: Signed SURGERY VISIT REPORT Observed: 10/05/2018 Status: F Source: [place] 11:32 AM [facility] REPOSITORY [facility] [address] [place] [address] OFFICE VISIT Date of Service: 10/05/18 MR#: [id number] Acct: [id number] Name: RADHA FUENTES Rep #: [id number] : 1965 Provider: Gage Schultz MD Age/Sex: 53/M Location: [facility] Status: Signed Intake Vital Signs10/05/18 Body Mass Index (BMI) 33.2 10/05/18 Height 5 ft 11 in 10/05/18 Weight: 240 lb 3 oz 10/05/18 Body Mass Index (BMI) 33.5 10/05/18 Blood Pressure 131/90 H Intake Visit Reasons: Multiple Acquired Skin Tags Chief Complaint: skin tags Corporate Administrator Required: No Is patient in pain?: No [...] BID #30 tab 09/26/18 [Rx Confirmed 10/05/18] PFSH Medical History History of pneumonia (Acute) [...] Cardio Heart Sounds: no murmurs Office Procedures 38814 Skin Tags 1-15 Performed By: Procedure performed [...] tags was 25. [place]. [address] Skin Tags >10 Performed By: Procedure performed [...] Follow-up as needed. Gage Schultz MD Pager: [facility] [address] [place] [address] [address] [place] [address] Office: Orders Orders: Coding Level of Care Code Attention Air Launch Weapons Technician Diagnoses Multiple acquired skin tags L91.8 Comment 12421 [place] on code 72666. Total of 25 skin tags removed. 10/05/18 1132 <Electronically signed by Gage Schultz MD> Date Gage Schultz MD Cosign Signature: Date (if applicable) CC: Naveen Melendez MD INTERNAL MEDICINE Observed: 09/27/2018 Status: F Source: [place] OFFICE VISIT 2:[address] [facility] Internal Medicine [address] [place], [place] [address] OFFICE VISIT Date of Service: 09/26/18 MR#: [id number] Acct: [id number] Name: RADHA FUENTES Rep #: [id number] : 1965 Provider: Naveen Melendez MD Age/Sex: 53/M Location: [facility] Status: Signed Intake Vital Signs09/26/18 Body Mass [...] Gen. surgery. This note was generated with WISErg dictation software. It may contain incorrect words, spelling, and punctuation that were not noted in checking the note before signing. Orders Referrals: Plan Detail Other Medications New: Coding Level of Care Code Off vis,est,level 4 Diagnoses Chronic right hip pain M25.551; G89.29 Back pain M54.9 Multiple acquired skin tags L91.8 09/27/18 1438 <Electronically signed by Naveen Melendez MD> Date Naveen Al Smith Signature: Date (if applicable) CC: URINALYSIS, COMPLETE Collected: 09/19/2018 Status: F Source: [place] 11:49 AM [facility] REPOSITORY Order Comment: How was Urine Obtained? OUTREACH REPRESENTATIVE TO SPECIFY TYPE CODE TESTS RESULT OUT [...] URINE SEEN Performed By: #### L400.0001 #### [facility] [address] [place], [address] TESTICULAR WITH Observed: 09/18/2018 Status: F Source: [place] ARTERIAL FLOW 12:16 PM [facility] REPOSITORY [facility] Imaging Services [address] [place] [address] Testicular with Arterial Flow MR#: [id number] Acct: [id number] Name: RADHA FUENTES Rep #: [id number] : 1965 M 53 From: Don Shay MD PCP: Naveen Melendez MD Status: REG CLI Study: Testicular with Arterial Flow Date of Exam: 09/18/18 Exam# [id number] Ordering Dr: Conrad Coy DYNO TECHNICIAN-C STUDY: SCROTUM ULTRASOUND REASON FOR EXAM: Male, [...] Don Shay MD at 15:21 EST Tel [phone], Service support , CC: Naveen Melendez MD; Conrad Coy NP Visual Basic Developer: Signed INTERNAL MEDICINE Observed: 09/18/2018 Status: F Source: [place] OFFICE VISIT 9:[address] [facility] Internal Medicine [address] [place] [address] [place] [address] OFFICE VISIT Date of Service: 09/18/18 MR#: [id number] Acct: [id number] Name: RADHA UFENTES Rep #: [id number] : 1965 Provider: Conrad Coy NP Age/Sex: 53/M Location: [facility] Status: Signed Intake Vital Signs09/18/18 Height 6 [...] factors. He does state that he takes trsu-pso-zlnwjqf Aleve which helps with his symptoms. He [...] ice. May continue with the use of uvmt-znf-rfmxpzo analgesics. Muscle relaxant Flexeril given the patient [...] 06/08/2018 Status: F Source: [place] 9:09 AM [facility] REPOSITORY [facility] Medical Records Department [address] [place] [address] Operative Report 06/08/18907 MR#: [id number] Acct: [id number] Name: RADHA FUENTES Rep #: [id number] : 1965 53 From: Gage Schultz MD PCP: Naveen Melendez MD Status: REG [facility] Location: [place] [address] Problem List (1) Screening for colon cancer [...] condition. Recommendations for follow up: 10 years 06/08/18908 <Electronically signed by Gage Schultz MD> Date Gage Schultz MD CC: Gage Schultz MD; Naveen Melendez MD Signed HISTORY AND PHYSICAL Observed: 06/08/2018 Status: F Source: [place] EXAM 9:08 AM [facility] REPOSITORY [facility] Medical Records Department [address] [place] [address] History and Physical 06/08/18 0907 MR#: [id number] Acct: [id number] Name: RADHA FUENTES Rep #: [id number] : 1965 53 From: Gage Schultz MD PCP: Naveen Melendez MD Status: REG SD Y Location: [place] [address] Past Medical/Surgical History - Planned Operation Planned [...] - Discharge Is Pt Admitted From a Half-Way, or a Nursing Home: No Who Could Help: ED After D/C, [...] proceed with procedure. Gage Schultz MD Pager: [facility] [address] [place] [address] [address] [place] [address] Office: Surgery Risks - Colonoscopy Risks Include [...] W/DIFF, AUTOMATED Collected: 02/16/2018 Status: F Source: [place] 8:22 AM [facility] REPOSITORY Order Comment: Order Date: 07/21/17 Order [...] Lymph 2.19 Performed By: #### L100.0100 #### [facility] [address] [place], [place] [address]. [place], [place], [address] COMPREHENSIVE METABOLIC Collected: 02/16/2018 Status: F [facility]22 AM [facility] REPOSITORY Order Comment: Order Date: 07/21/17 Order Info: 0786-1 - *CMP Complete Metabolic Panel Order Info: 58098-1 - *Lipid Profile Comments: Fasting 12 hours, may have water. Order Info: 3016-3 - *TSH Comments: Reason: Order Info: 3717-1 - *PSA (Prostate Specific Antigen) TYPE CODE [...] GAP 9 Performed By: #### L500.4050 #### [facility] [address] [place], [address] LIPID PROFILE Collected: 02/16/2018 Status: F Source: [place] 8:22 AM [facility] REPOSITORY Order Comment: Order Date: 07/21/17 Order Info: 0786-1 - *CMP Complete Metabolic Panel Order Info: 73487-8 - *Lipid Profile Comments: Fasting 12 hours, may have water. Order Info: 3016-3 - *TSH Comments: Reason: Order Info: 2856-10 - *PSA (Prostate Specific Antigen) TYPE CODE [...] VLDL 69 Performed By: #### L500.4100 #### [facility] [address] [place], [place], [address] THYROID STIM HORMONE Collected: 02/16/2018 Status: F Source: [place] (TSH) 8:22 AM [facility] REPOSITORY Order Comment: Order Date: 07/21/17 Order Info: 0786-1 - *CMP Complete Metabolic Panel Order Info: 99379-1 - *Lipid Profile Comments: Fasting 12 hours, may have water. Order Info: 3016-3 - *TSH Comments: Reason: Order Info: 2857-1 - *PSA (Prostate Specific Antigen) TYPE CODE TESTS RESULT OUT OF RANGE REFERENCE UNITS LAB L501.9520 0.358-3.74 uIU/mL Normal TSH 1.49 Performed By: #### L501.9520 #### [facility] [address] [place], [address] PSA,TOTAL - ANNUAL Collected: 02/16/2018 Status: F Source: [place] SCREEN 8:22 AM [facility] REPOSITORY Order Comment: Order Date: 07/21/17 Order Info: 0786-1 - *CMP Complete Metabolic Panel Order Info: 90817-0 - *Lipid Profile Comments: Fasting 12 hours, may have water. Order Info: 3016-3 - *TSH Comments: Reason: Order Info: 2857-1 - *PSA (Prostate Specific Antigen) TYPE CODE TESTS RESULT OUT OF RANGE REFERENCE UNITS LAB L501.9910 0.00-4.00 ng/mL Normal PSA,TOT 3.79 SCREEN Result Comment: This test was performed using the TPSA assay method for the LiveSafe chemistry system. Values obtained with different assay methods cannot be used interchangably. When changing PSA assays in the course of monitoring a patient, additional sequential testing should be carried out to confirm baseline values. Performed By: #### L501.9910 #### [facility] [address] [facility] [place], [address] HEMOGLOBIN A1C Collected: 02/16/2018 Status: F Source: [place] 8:22 AM [facility] REPOSITORY Order Comment: Order Date: 07/21/17 Order Info: 4548-4 - *HgA1C TYPE CODE TESTS RESULT OUT OF RANGE REFERENCE UNITS LAB L501.9985 4.2-6.3 % High HGB A1C 6.4 Performed By: #### L501.9985 #### [facility] [address] [place], [address] ALLERGIES ALLERGIES DATE TYPE / CODE NAME / CODE REACTION SEVERITY SOURCE 10/26/2018 Drug morphine/F00 Itching Unknown [facility] Allergy/4160 [id number]([facility] [address](SNOMED ) Repository CT) ENCOUNTERS ENCOUNTERS ADMIT/DISCHARGE ACCOUNT ADMITTING ENCOUNTER LOCATION SOURCE NUMBER CLASS 10/26/2018/ [id number] Ambulatory BMSBuilding:B [place] 9 5 MS.BIM [facility] Repository 10/05/2018 [id number] Ambulatory [place] 3 [facility] ing:CT Repository 10/05/2018/ [id number] Ambulatory BMSBuilding:B [place] 9 1 MS.WSA [facility] Repository 09/26/2018/ [id number] Ambulatory BMSBuilding:B [place] 8 6 MS.[facility] Repository 09/19/2018 [id number] Ambulatory [place] 9 [facility] ing:LABSPEC Repository 09/18/2018 [id number] Ambulatory [place] 7 [facility] ing:US Repository 09/18/2018/ [id number] Ambulatory BMSBuilding:B [place] 8 8 MS.[facility] Repository 06/08/2018/ [id number] Ambulatory [place] 8 9 [facility] ing:ENRoom: Repository AC12 06/08/2018 [id number] Ambulatory BMSBuilding:B [place] 4 MS.CF.[facility] Repository 03/27/2018/ [id number] Ambulatory BMSBuilding:B [place] 8 4 MS.[facility] Repository 02/16/2018 [id number] Ambulatory [place] 6 [facility] ing:LAB Repository PAYERS PAYERS ENCOUNTER GUARANTOR PAYER SUBSCRIBER SOURCE 10/26/2018 RADHA S Primary RADHA S [place] [id number] [place] [facility] RUN Number: [id number] Health Services [id number] Repository , [place] [address]Wcr: Date:8077-46-65ZS [address] [place] () [address]YT: 10/26/2018 Secondary NOT GIVENUNK [place] Insurance:SELF PAY [facility] Number: Effective Repository Date:2018-10-23 10/05/2018 RADHA S Primary RADHA S [place] [id number] [place] [facility]SD[facility] Community RUN Number: [id number] Health Services [id number] Repository , [place] [address]Lbz: Date:0861-63-65RI [address] [place] () [address]SM: 10/05/2018 Secondary NOT GIVENUNK [place] Insurance:SELF PAY [facility] Number: Effective Repository Date:2018-09-27 10/05/2018 RADHA S Primary RADHA S [place] [id number] [place] Insurance:AETNAPolicy SUGGSDOB: Community RUN Number: [id number] Health Services [id number] Repository , [place] [address]Jvo: Date:9568-86-19BO [address] [place] () [address]LZ: 10/05/2018 Secondary NOT GIVENUNK [place] Insurance:SELF PAY [facility] Number: Effective Repository Date:2018-10-04 09/26/2018 RADHA S Primary RADHA S [place] [id number] DEER Insurance:AETNAPolicy SUGGSDOB: Community RUN Number: [id number] Health Services [id number] Repository , [place] [address]Tac: Date:9784-46-37TI [address] [place] () [address]BN: 09/26/2018 Secondary NOT GIVENUNK [place] Insurance:SELF PAY [facility] Number: Effective Repository Date:2018-09-24 09/19/2018 RADHA S Primary RADHA S [place] [id number] DE[place] Insurance:AETNAPolicy SUGGSDOB: Community RUN Number: [id number] Health Services [id number] Repository , [place] [address]Jwe: Date:8764-27-10QW [address] [place] () [address]KM: 09/19/2018 Secondary NOT GIVENUNK [place] Insurance:SELF PAY [facility] Number: Effective Repository Date:2018-09-19 09/18/2018 RADHA S Primary RADHA S [place] [id number] DE[place] Insurance:AETNAPolicy SUGGSDOB: Community RUN Number: [id number] Health Services [id number] Repository , [place] [address]Wcq: Date:4573-25-38OW [address]AMITA [place] () [address]RC: 09/18/2018 Secondary NOT GIVENUNK [place] Insurance:SELF PAY Community [facility] Number: Effective Repository Date:2018-09-18 09/18/2018 RADHA S Primary RADHA S [place] [id number] DE[place] Insurance:AETNAPolicy SUGGSDOB: Community RUN Number: [id number] Health Services [id number] Repository , [place] [address]Kqy: Date:2106-96-05HP [address]IJAMITA [place] () [address]BN: 09/18/2018 Secondary NOT GIVENUNK [place] Insurance:SELF PAY [facility] Number: Effective Repository Date:2018-09-17 06/08/2018 [place] S Primary RADHA S [place] [id number] DEER Insurance:AETNAPolicy SUGGSDOB: Community RUN Number: [id number] Health Services [id number] Repository , [place] [address]Kem: Date:3374-05-07HA [address] [place] () [address]WD: 06/08/2018 Secondary NOT GIVENUNK [place] Insurance:SELF PAY [facility] Number: Effective Repository Date:2018-03-27 06/08/2018 [place] S Primary RADHA S [place] [id number] DEER Insurance:AETNAPolicy SUGGSDOB: Community RUN Number: [id number] Health Services [id number] Repository , [place] [address]Rmw: Date:2859-50-84XT [address]JLAMITA [place]STLE () [address]DI: 06/08/2018 Secondary NOT GIVENUNK [place] Insurance:SELF PAY [facility] Number: Effective Repository Date:2018-06-08 03/27/2018 RADHA [id number] Primary RADHA SUGGSDOB: Mamie [address] Insurance:Jerel [id number] [facility] Number: [place], [place] [address]Uao: [id number] Repository Date:0683-13-38BX [address] () [address] AMITA JOHNSON [address]RP: 03/27/2018 Secondary NOT GIVENUNK [place] Insurance:SELF PAY [facility] Number: Effective Repository Date:2018-03-27 02/16/2018 RADHA [id number] Primary RADHA SUGGSDOB: [place] [address] Insurance:Jerel [id number] [facility] Number: [place], [place] [address]Hsa: [id number] Repository Date:6800-84-03YI [address] () [address] [place] [address]GS: 02/16/2018 Secondary NOT GIVENUNK [place] Insurance:SELF PAY [facility] Number: Effective Repository Date:2018-02-16
== END ==
PROVIDERS: Family Provider Internal Medicine; PCP Internal Medicine; Referring Provider Nurse Practitioner Family; Visit Provider Nurse Practitioner Family
DX: M54.5 Low back pain (principal)
CPT/HCPCS: 81001

== ENCOUNTER → 2018-10-05 12:53 | Outpatient (CLI) | payer OTHER, SELFPAY ==
[2018-09-26 16:47] VITALS: BMI 33.2
[2018-10-05 10:51] VITALS: BMI 33.2
--- NOTE | 2018-10-05 12:55 | CT_ITS ---
STUDY: CT ABDOMEN AND PELVIS WITHOUT CONTRAST REASON FOR EXAM: Male, 53 years old. Right groin pain for one month RADIATION DOSAGE (If Supplied By Facility): CTDIvol = ( 19.35 ) mGy, DLP = ( 1155.53 ) mGycm TECHNIQUE: Transaxial images were obtained from the dome of the diaphragm to the symphysis pubis with oral contrast, and without intravenous contrast. Sagittal and coronal images were reconstructed. Individualized dose optimization techniques were used for this CT. COMPARISON: None. FINDINGS: The visualized lung bases are unremarkable. The visualized portions of the heart are within normal limits. There is decreased attenuation of the liver consistent with steatosis. In the left hepatic lobe on image 40 (lateral to the falciform ligament) is a 2.0 cm rounded area of relative increased density that could represent focal sparing versus mass. Normal gallbladder and extrahepatic biliary system. Normal spleen. Normal pancreas. Normal bilateral adrenal glands. Normal right kidney. Normal left kidney. Normal visualized stomach. Normal small intestine. Normal colon. There is non-visualization of the appendix. Normal abdominal aorta. Normal inferior vena cava. Normal retroperitoneum. Normal urinary bladder. Mild soft tissue thickening deep to the right inguinal ring on axial image localized contrast in the upper left hemiscrotum on axial image 202 likely represents a varicocele. 146 is likely related to prior surgery (fibrosis) but no focal fluid collection or recurrent hernia is identified of either inguinal region. There are diffuse degenerative changes of the visualized lumbar spine. CT/Abdomen/Pelvis without Cont IMPRESSION: 1. No inguinal hernia or focal fluid collection. Probable postoperative fibrotic changes deep to the right inguinal ring. 2. Hepatic steatosis. Probable rounded fatty sparing in the left hepatic lobe, although mass cannot be excluded. Although ultrasound may further the pectus abnormality, may be obscured given hepatic steatosis. MRI would likely best define abnormality. 3. Left upper hemiscrotal varicocele. Electronically Signed: Aakash Layne MD at 7:56 EST , Service support ,
== END ==
PROVIDERS: Family Provider Internal Medicine; PCP Internal Medicine; Referring Provider Internal Medicine; Visit Provider Internal Medicine
DX: M25.551 Pain in right hip (principal); G89.29 Other chronic pain
CPT/HCPCS: 74176

== ENCOUNTER → 2018-11-09 06:23 | Outpatient (CLI) | payer OTHER, SELFPAY ==
[2018-10-26 08:56] VITALS: BMI 33.2
--- NOTE | 2018-11-09 06:25 | MRI_ITS ---
STUDY: MRI ABDOMEN WITH AND WITHOUT CONTRAST REASON FOR EXAM: Male, 53 years old. Focal hyperdense lesion in the left hepatic lobe recent CT. TECHNIQUE: Standardized fat and water weighted pulse sequences were obtained in all 3 orthogonal planes post contrast administration. 11 ml of Gadavist contrast material was administered intravenously for the contrast portion of the examination. COMPARISON: None. FINDINGS: Adjacent chest is unremarkable. There is diminished signal intensity throughout the left hepatic lobe with a rounded to oval-shaped area of relative increased signal intensity (bright on out of phase T1, dark and T2). No abnormal contrast enhancement. No restricted diffusion. No mass effect. Normal gallbladder and extrahepatic biliary system. Normal spleen. Normal pancreas. Normal bilateral adrenal glands. Normal right kidney. Normal left kidney. Visualized hollow viscus structures are unremarkable. No retroperitoneal adenopathy. MRI/MRI Abd WITH and W/O Contrast IMPRESSION: 1. Hepatic steatosis with focal fatty sparing in the left hepatic lobe, correlating to abnormality on prior CT. No suspicious hepatic masses or abnormal contrast enhancement. Electronically Signed: Aakash Layne MD at 15:55 EST , Service support ,
== END ==
PROVIDERS: Family Provider Internal Medicine; PCP Internal Medicine; Referring Provider Internal Medicine; Visit Provider Internal Medicine
DX: R93.2 Abnormal findings on diagnostic imaging of liver and biliary tract (principal)
CPT/HCPCS: 74183; A9585; A4216

== ENCOUNTER → 2019-01-18 09:32 | Outpatient (CLI) | payer OTHER, SELFPAY ==
[2019-01-18 09:08] VITALS: BMI 33.2
[2019-01-18 13:10] LABS: Hemoglobin A1c 7.1 % (4.2-6.3)
[2019-01-18 13:17] LABS: Microalbumin:Creatinine Ratio 12.4 mg/g CRE (<30 mg/g CRE)
== END ==
LOC: EPLAB 09:32 → BIMLAB 01-21 08:53
PROVIDERS: Family Provider Internal Medicine; PCP Internal Medicine; Visit Provider Internal Medicine
DX: E11.9 Type 2 diabetes mellitus without complications (principal)
CPT/HCPCS: 36415; 82043; 82570; 83036

== ENCOUNTER → 2019-05-29 | Outpatient (CLI) | payer OTHER, SELFPAY ==
[2019-05-28 16:17] VITALS: BMI 33.5
[2019-05-29 07:02] LABS: Hematocrit 47.3 % (40-54); Hemoglobin 15.5 g/dL (13.0-16.5); Mean Corp Hgb Conc 32.8 g/dL (32-36); Mean Corpuscular Hgb 27.1 pg (27.0-32.0); Mean Corpuscular Volume 82.5 fL (80-94); Mean Platelet Vol. 10.6 fl (6.2-12.0); Platelet Count 198 K/mm3 (150-450); RBC Distribution Width CV 13.1 % (11.6-14.6); Red Blood Count 5.73 M/mm3 (4.6-6.2); White Blood Count 7.2 K/mm3 (4.4-11.0)
[2019-05-29 07:27] LABS: Hemoglobin A1c 6.9 % (4.2-6.3)
[2019-05-29 07:51] LABS: ALB/GLOB Ratio 1.2 RATIO (0.9-2.4); AST(SGOT) 29 U/L (15-37); Alanine Aminotransfer ALT/SGPT 48 U/L (16-61); Alkaline Phosphatase 88 U/L (45-117); Anion Gap 9 (5-15); BUN 14 mg/dL (7-18); BUN/Creat Ratio 11.7 RATIO (10-20); Calcium,Total 8.8 mg/dL (8.5-10.1); Chloride 106 mmol/L (98-107); Cholesterol 197 mg/dL (200); EST Glomerular Filtration Rate 67 mL/min (>60); Est Glom Filt Rate - Afr Amer 81 mL/min (>60); Globulin 3.3 g/dL (2.2-4.2); Glucose 129 mg/dL (74-106); High Density Lipoprotein 36 mg/dL; PSA,Total - Annual Screen 1.19 ng/mL (0.00-4.00); Potassium 4.4 mmol/L (3.5-5.1); Protein, Total 7.3 g/dL (6.4-8.2); Sodium Level 141 mmol/L (136-145); Thyroid Stim Hormone (TSH) 2.07 uIU/mL (0.358-3.74); Triglycerides 393 mg/dL; Very Low Density Lipoprotein 79 mg/dL (5-40)
[2019-05-29 07:53] LABS: Microalbumin,Random Urine 43.2 mg/L (NO RANGE EST.); Microalbumin:Creatinine Ratio 13.5 mg/g CRE (<30 mg/g CRE)
== END | disposition home or self-care (01) ==
LOC: LAB 05:57
PROVIDERS: Family Provider Internal Medicine; PCP Internal Medicine; Referring Provider Nurse Practitioner Family; Visit Provider Nurse Practitioner Family
DX: E11.9 Type 2 diabetes mellitus without complications (principal); E66.9 Obesity, unspecified; Z12.5 Encounter for screening for malignant neoplasm of prostate
CPT/HCPCS: 36415; 80053; 80061; 82043; 82570; 83036; 84153; 84443; 85027; G0103

== ENCOUNTER → 2019-11-20 06:05 | Outpatient (CLI) | payer BC, SELFPAY ==
[2019-05-28 16:17] VITALS: BMI 33.5
[2019-11-20 07:39] LABS: Microalbumin,Random Urine 66.3 mg/L (NO RANGE EST.); Microalbumin:Creatinine Ratio 30.8 mg/g CRE (<30 mg/g CRE)
[2019-11-20 07:50] LABS: ALB/GLOB Ratio 1.1 RATIO (0.9-2.4); AST(SGOT) 35 U/L (15-37); Alanine Aminotransfer ALT/SGPT 67 U/L (16-61); Albumin, Serum 4.2 g/dL (3.2-5.0); Alkaline Phosphatase 85 U/L (45-117); Anion Gap 6 (5-15); BUN 13 mg/dL (7-18); BUN/Creat Ratio 9.9 RATIO (10-20); Calcium,Total 10.1 mg/dL (8.5-10.1); Chloride 102 mmol/L (98-107); Cholesterol 225 mg/dL (200); Creatinine, Serum 1.31 mg/dL (0.70-1.30); EST Glomerular Filtration Rate 61 mL/min (>60); Est Glom Filt Rate - Afr Amer 73 mL/min (>60); Globulin 3.8 g/dL (2.2-4.2); Glucose 151 mg/dL (74-106); High Density Lipoprotein 39 mg/dL; Potassium 4.2 mmol/L (3.5-5.1); Sodium Level 136 mmol/L (136-145); Triglycerides 378 mg/dL; Very Low Density Lipoprotein 76 mg/dL (5-40)
== END ==
PROVIDERS: PCP Internal Medicine; Referring Provider Nurse Practitioner Family; Visit Provider Nurse Practitioner Family
DX: E11.9 Type 2 diabetes mellitus without complications (principal); K76.0 Fatty (change of) liver, not elsewhere classified; E88.81 Metabolic syndrome and other insulin resistance; E78.5 Hyperlipidemia, unspecified
CPT/HCPCS: 36415; 80053; 80061; 82043; 82570; 83036

== ENCOUNTER → 2020-04-10 06:00 | Outpatient (CLI) | payer OTHER, SELFPAY ==
[2020-03-26 09:33] VITALS: BMI 33.5
[2020-04-10 07:52] LABS: Cholesterol 184 mg/dL (200); High Density Lipoprotein 38 mg/dL; Microalbumin,Random Urine 71.7 mg/L (NO RANGE EST.); Microalbumin:Creatinine Ratio 25.9 mg/g CRE (<30 mg/g CRE); Triglycerides 184 mg/dL; Very Low Density Lipoprotein 37 mg/dL (5-40)
== END ==
PROVIDERS: PCP Internal Medicine; Referring Provider Nurse Practitioner Family; Visit Provider Nurse Practitioner Family
DX: E11.9 Type 2 diabetes mellitus without complications (principal); E78.5 Hyperlipidemia, unspecified
CPT/HCPCS: 36415; 80061; 82043; 82570

== ENCOUNTER → 2022-05-11 | Outpatient (CLI) | payer BC, SELFPAY ==
[2022-05-11 12:10] LABS: Absolute Lymphocyte Count 1.73 X10^3/uL (0.83-4.51); Absolute Neutrophil Count 2.8 X10^3/uL (2.0-7.7); Basophil# 0.07 X10^3/uL; Basophil% 1.3 % (0-1); Eosinophil# 0.32 X10^3/uL; Eosinophils% 5.9 % (0-5); Hematocrit 45.4 % (40-54); Hemoglobin 16.1 g/dL (13.0-16.5); Lymphocyte # 1.73 X10^3/ul (0.83-4.51); Lymphocyte % 31.8 % (19-41); Mean Corp Hgb Conc 35.5 g/dL (32-36); Mean Corpuscular Volume 81.7 fL (80-94); Monocyte# 0.45 X10^3/uL; Monocyte% 8.3 % (0-10); NRBC Flagged by Analyzer 0 % (0-5); Neutrophil # 2.84 X10^3/uL (2.7-7.7); Neutrophil % 52.1 % (47-70); Platelet Count 172 K/mm3 (150-450); RBC Distribution Width SD 38.5 fl (35.1-43.9); Red Blood Count 5.56 M/mm3 (4.6-6.2); White Blood Count 5.4 K/mm3 (4.4-11.0)
[2022-05-11 12:38] LABS: Microalbumin:Creatinine Ratio 131.2 mg/g CRE (<30 mg/g CRE)
[2022-05-11 12:54] LABS: ALB/GLOB Ratio 1.2 RATIO (0.9-2.4); AST(SGOT) 16 U/L (15-37); Alanine Aminotransfer ALT/SGPT 39 U/L (16-61); Alkaline Phosphatase 114 U/L (45-117); Anion Gap 9 (5-15); BUN 13 mg/dL (7-18); BUN/Creat Ratio 12.5 RATIO (10-20); Calcium,Total 9.2 mg/dL (8.5-10.1); Chloride 99 mmol/L (98-107); Cholesterol 282 mg/dL (200); Creatinine, Serum 1.04 mg/dL (0.70-1.30); EST Glomerular Filtration Rate 78 mL/min (>60); Est Glom Filt Rate - Afr Amer 95 mL/min (>60); Globulin 3.4 g/dL (2.2-4.2); Glucose 351 mg/dL (74-106); High Density Lipoprotein 35 mg/dL; Potassium 4.2 mmol/L (3.5-5.1); Protein, Total 7.4 g/dL (6.4-8.2); Sodium Level 132 mmol/L (136-145); Triglycerides 1719 mg/dL
== END | disposition home or self-care (01) ==
LOC: BIMLAB 09:25
PROVIDERS: PCP Internal Medicine; Referring Provider Internal Medicine; Visit Provider Internal Medicine
DX: E11.9 Type 2 diabetes mellitus without complications (principal)
CPT/HCPCS: 36415; 80053; 80061; 82043; 82570; 85025

== ENCOUNTER → 2023-01-13 | Outpatient (CLI) | payer BC, SELFPAY | END | disposition home or self-care (01) | LOC: LABSPEC 13:27 | PROVIDERS: PCP Internal Medicine; Visit Provider Nurse Practitioner Family | DX: K62.5 Hemorrhage of anus and rectum (principal) | CPT/HCPCS: 82274 ==

== ENCOUNTER → 2023-04-11 | Outpatient (CLI) | payer BC, SELFPAY ==
--- NOTE | 2023-04-11 08:13 | CT_ITS ---
STUDY: CT ABDOMEN AND PELVIS WITH CONTRAST REASON FOR EXAM: Male, 57 years old. Groin pain, history of hernia RADIATION DOSAGE (If Supplied By Facility): CTDIvol = ( 18.24 ) mGy, DLP = ( 1241.97 ) mGycm TECHNIQUE: Transaxial images were obtained from the dome of the diaphragm to the symphysis pubis with oral contrast. Oral and amp; IV Readi-CAT and amp; 100mL Isovue-300 was administered. Sagittal and coronal images were reconstructed. Individualized dose optimization techniques were used for this CT. COMPARISON: Comparison is made with prior study dated October 05, 2018. FINDINGS: The visualized lung bases are unremarkable. The visualized portions of the heart are within normal limits. There is decreased attenuation of the liver consistent with steatosis. Normal gallbladder and extrahepatic biliary system. Normal spleen. Normal pancreas. Normal bilateral adrenal glands. Normal right kidney. Normal left kidney. Normal visualized stomach. Normal small intestine. There are scattered colonic diverticula consistent with diverticulosis. The appendix is visualized and appears normal. Normal abdominal aorta. Normal inferior vena cava. Normal retroperitoneum. Normal urinary bladder. There are prostatic calcifications. Normal abdominal wall. Small benign-appearing bilateral inguinal lymph nodes. There are mild degenerative changes of the visualized lumbar spine. Straightening of the normal lumbar lordosis. CT/Abdomen/Pelvis WITH Contrast IMPRESSION: Fatty infiltration of the liver. Scattered sigmoid diverticula. Electronically Signed: Don Shay MD at 13:59 EDT ,
[2023-04-11 08:54] LABS: CREATININE FINGERSTICK 1.3 mg/dL (0.70-1.30)
== END | disposition home or self-care (01) ==
LOC: CT 08:12
PROVIDERS: PCP Internal Medicine; Referring Provider Internal Medicine; Visit Provider Internal Medicine
DX: R10.31 Right lower quadrant pain (principal)
CPT/HCPCS: 74177; Q9967

== ENCOUNTER → 2023-05-03 | Outpatient (CLI) | payer BC, SELFPAY ==
[2023-05-03 12:27] LABS: Absolute Lymphocyte Count 2.31 X10^3/uL (0.83-4.51); Absolute Neutrophil Count 3.8 X10^3/uL (2.0-7.7); Basophil# 0.09 X10^3/uL; Basophil% 1.2 % (0-1); Eosinophil# 0.31 X10^3/uL; Eosinophils% 4.2 % (0-5); Hematocrit 44.3 % (40-54); Lymphocyte # 2.31 X10^3/ul (0.83-4.51); Lymphocyte % 31.6 % (19-41); Mean Corp Hgb Conc 33.9 g/dL (32-36); Mean Corpuscular Hgb 28.4 pg (27.0-32.0); Mean Corpuscular Volume 83.9 fL (80-94); Mean Platelet Vol. 10.6 fl (6.2-12.0); Monocyte# 0.71 X10^3/uL; Monocyte% 9.7 % (0-10); NRBC Flagged by Analyzer 0 % (0-5); Neutrophil # 3.83 X10^3/uL (2.7-7.7); Neutrophil % 52.5 % (47-70); Platelet Count 198 K/mm3 (150-450); RBC Distribution Width CV 13.2 % (11.6-14.6); RBC Distribution Width SD 40.3 fl (35.1-43.9); Red Blood Count 5.28 M/mm3 (4.6-6.2); White Blood Count 7.3 K/mm3 (4.4-11.0)
[2023-05-03 12:55] LABS: ALB/GLOB Ratio 1.2 RATIO (0.9-2.4); AST(SGOT) 25 U/L (15-37); Alanine Aminotransfer ALT/SGPT 49 U/L (16-61); Albumin, Serum 4.2 g/dL (3.2-5.0); Alkaline Phosphatase 68 U/L (45-117); Anion Gap 5 (5-15); BUN 13 mg/dL (7-18); BUN/Creat Ratio 10.5 RATIO (10-20); Calcium,Total 10.1 mg/dL (8.5-10.1); Chloride 105 mmol/L (98-107); Cholesterol 183 mg/dL (200); Creatinine, Serum 1.24 mg/dL (0.70-1.30); EST Glomerular Filtration Rate 64 mL/min (>60); Est Glom Filt Rate - Afr Amer 77 mL/min (>60); Globulin 3.5 g/dL (2.2-4.2); Glucose 129 mg/dL (74-106); High Density Lipoprotein 37 mg/dL; Potassium 4.2 mmol/L (3.5-5.1); Protein, Total 7.7 g/dL (6.4-8.2); Sodium Level 135 mmol/L (136-145); Triglycerides 347 mg/dL; Very Low Density Lipoprotein 69 mg/dL (5-40)
== END | disposition home or self-care (01) ==
LOC: BIMLAB 09:44
PROVIDERS: PCP Internal Medicine; Visit Provider Internal Medicine
DX: E11.9 Type 2 diabetes mellitus without complications (principal)
CPT/HCPCS: 36415; 80053; 80061; 85025

== ENCOUNTER → 2024-01-17 | Outpatient (CLI) | payer OTHER, SELFPAY | END | disposition home or self-care (01) | LOC: PSN 09:00 | PROVIDERS: PCP Internal Medicine; Referring Provider Chiropractor; Visit Provider Chiropractor | DX: R91.1 Solitary pulmonary nodule (principal) | CPT/HCPCS: 94060; 94726; 94729 ==

== ENCOUNTER → 2024-04-10 | Outpatient (CLI) | payer BC, SELFPAY ==
[2024-04-10 12:24] LABS: Absolute Lymphocyte Count 2.15 X10^3/uL (0.83-4.51); Absolute Neutrophil Count 4.6 X10^3/uL (2.0-7.7); Basophil# 0.07 X10^3/uL; Basophil% 0.9 % (0-1); Eosinophil# 0.28 X10^3/uL; Eosinophils% 3.5 % (0-5); Hematocrit 44.4 % (40-54); Hemoglobin 14.7 g/dL (13.0-16.5); Lymphocyte # 2.15 X10^3/ul (0.83-4.51); Lymphocyte % 27.1 % (19-41); Mean Corp Hgb Conc 33.1 g/dL (32-36); Mean Corpuscular Hgb 27.9 pg (27.0-32.0); Mean Corpuscular Volume 84.4 fL (80-94); Mean Platelet Vol. 10.6 fl (6.2-12.0); Monocyte# 0.78 X10^3/uL; Monocyte% 9.8 % (0-10); NRBC Flagged by Analyzer 0 % (0-5); Neutrophil # 4.62 X10^3/uL (2.7-7.7); Neutrophil % 58.2 % (47-70); Platelet Count 208 K/mm3 (150-450); RBC Distribution Width CV 13.5 % (11.6-14.6); RBC Distribution Width SD 41.6 fl (35.1-43.9); Red Blood Count 5.26 M/mm3 (4.6-6.2); White Blood Count 7.9 K/mm3 (4.4-11.0)
[2024-04-10 12:51] LABS: ALB/GLOB Ratio 1.2 RATIO (0.9-2.4); AST(SGOT) 31 U/L (15-37); Alanine Aminotransfer ALT/SGPT 40 U/L (16-61); Albumin, Serum 4.1 g/dL (3.2-5.0); Alkaline Phosphatase 75 U/L (45-117); Anion Gap 7 (5-15); BUN 14 mg/dL (7-18); BUN/Creat Ratio 10.5 RATIO (10-20); Chloride 105 mmol/L (98-107); Cholesterol 132 mg/dL (200); Creatinine, Serum 1.33 mg/dL (0.70-1.30); EST Glomerular Filtration Rate 59 mL/min (>60); Est Glom Filt Rate - Afr Amer 71 mL/min (>60); Globulin 3.5 g/dL (2.2-4.2); Glucose 122 mg/dL (74-106); High Density Lipoprotein 36 mg/dL; PSA,Total - Annual Screen 1.22 ng/mL (0.00-4.00); Potassium 4.6 mmol/L (3.5-5.1); Protein, Total 7.6 g/dL (6.4-8.2); Sodium Level 135 mmol/L (136-145); Triglycerides 115 mg/dL; Very Low Density Lipoprotein 23 mg/dL (5-40)
== END | disposition home or self-care (01) ==
LOC: BIMLAB 08:34
PROVIDERS: PCP Internal Medicine; Referring Provider Internal Medicine; Visit Provider Internal Medicine
DX: E78.5 Hyperlipidemia, unspecified (principal); E11.29 Type 2 diabetes mellitus with other diabetic kidney complication; Z12.5 Encounter for screening for malignant neoplasm of prostate; R80.9 Proteinuria, unspecified
CPT/HCPCS: 36415; 80053; 80061; 84153; 85025; G0103

== ENCOUNTER → 2025-01-10 | Outpatient (CLI) | payer BC, SELFPAY ==
[2025-01-10 13:24] LABS: PTHIN 24 pg/mL (11-61)
[2025-01-10 13:33] LABS: Anion Gap 14 (5-15); BUN 15 mg/dL (4-19); BUN/Creat Ratio 10.9 RATIO (10-20); Calcium,Total 9.9 mg/dL (7.6-11.0); Carbon Dioxide 19.4 mmol/L (21.0-32.0); Chloride 102 mmol/L (98-108); Creatinine, Serum 1.39 mg/dL (0.70-1.20); EST Glomerular Filtration Rate 58 (>60); Glucose 212 mg/dL (70-99); Potassium 4.3 mmol/L (3.3-5.1); Sodium Level 135 mmol/L (133-145)
[2025-01-10 13:35] LABS: Vitamin D,25 Hydroxy 70.8 ng/mL (30-100)
== END | disposition home or self-care (01) ==
LOC: BIMLAB 08:36
PROVIDERS: PCP Internal Medicine; Referring Provider Internal Medicine; Visit Provider Internal Medicine
DX: E83.52 Hypercalcemia (principal)
CPT/HCPCS: 36415; 80048; 82306; 83970